=== PATIENT | male | born 1945 | race Caucasian/White ===

== ENCOUNTER 2023-08-17 07:50 | Outpatient (RCR) | payer OTHER, SELFPAY ==
[2023-07-25 13:56] LABS: Hematocrit 20.6 % (39.0-52.0); Hemoglobin 6.8 g/dL (13.0-18.0); Mean Corpuscular Volume 90.7 fL (80.0-94.0); Mean Platelet Volume 11.2 fL (7.4-10.4); Platelet Count 178 10^3/uL (130-400); Red Blood Cell Count 2.27 10^6/uL (4.70-6.10); Red Cell Dist. Width 16.2 % (11.5-14.5); White Blood Cell Count 172.7 10^3/uL (4.8-10.8)
[2023-07-25 17:13] LABS: Absolute Neutrophils -Man Diff 43.1 10^3/uL (1.4-6.5); Band Neutrophils 7 % (0-3); Lymphocytes 16 % (20-51); Segmented Neutrophils 18 % (42-75)
[2023-07-25 17:14] LABS: Eosinophils 1 % (0-6); Metamyelocytes 3 % (-); Monocytes 11 % (2-9); Myelocytes 4 % (-); Normal RBC Morphology No; Nucleated Red Blood Cells 1 (-); Platelets Checked Yes; Promyelocytes 5 % (-)
[2023-07-25 17:15] LABS: Anisocytosis 1+; Hypochromasia 2+; Microcytosis Slight
[2023-07-25 17:16] LABS: Total Cells Counted 100
[2023-07-25 17:21] LABS: Blasts 35 % (-)
[2023-07-28] VITALS (8 sets, daily range): BP systolic 92–97; BP diastolic 51–55
[2023-08-03 13:03] LABS: Hematocrit 19.2 % (39.0-52.0); Hemoglobin 6.7 g/dL (13.0-18.0); Mean Corp Hgb Conc. 34.9 g/dL (33.0-37.0); Mean Corpuscular Hgb 29.4 pg (27.0-31.0); Mean Corpuscular Volume 84.2 fL (80.0-94.0); Platelet Count 73 10^3/uL (130-400); Red Blood Cell Count 2.28 10^6/uL (4.70-6.10); Red Cell Dist. Width 15.8 % (11.5-14.5); White Blood Cell Count 13.1 10^3/uL (4.8-10.8)
[2023-08-03 14:32] LABS: Anisocytosis 1+; Band Neutrophils 5 % (0-3); Hypochromasia 2+; Lymphocytes 11 % (20-51); Metamyelocytes 2 % (-); Monocytes 1 % (2-9); Normal RBC Morphology No; Platelets Checked Yes; Segmented Neutrophils 64 % (42-75)
[2023-08-03 14:33] LABS: Blasts 17 % (-)
[2023-08-03 14:36] LABS: Total Cells Counted 100
[2023-08-04 08:34] VITALS: BP 82/47
[2023-08-04 08:51] VITALS: BP 81/40
[2023-08-04 10:53] VITALS: BP 92/53
[2023-08-04 11:01] VITALS: BP 92/53
[2023-08-04 11:19] VITALS: BP 92/49
[2023-08-04 13:40] VITALS: BP 95/53
[2023-08-15 14:04] LABS: Hemoglobin 7.2 g/dL (13.0-18.0); Mean Corp Hgb Conc. 32.7 g/dL (33.0-37.0); Mean Corpuscular Hgb 28.8 pg (27.0-31.0); Mean Platelet Volume 12.9 fL (7.4-10.4); Platelet Count 41 10^3/uL (130-400); Red Cell Dist. Width 15.1 % (11.5-14.5); White Blood Cell Count 5.7 10^3/uL (4.8-10.8)
[2023-08-15 14:35] LABS: Absolute Neutrophils -Man Diff 1.4 10^3/uL (1.4-6.5); Band Neutrophils 0 % (0-3); Blasts 7 % (-); Lymphocytes 53 % (20-51); Metamyelocytes 1 % (-); Monocytes 14 % (2-9); Segmented Neutrophils 25 % (42-75)
[2023-08-15 14:36] LABS: Normal RBC Morphology Yes; Platelets Checked Yes
[2023-08-15 14:37] LABS: Total Cells Counted 100
[2023-08-17 08:28] VITALS: BP 98/56
[2023-08-17 08:47] VITALS: BP 86/43
[2023-08-17 10:36] VITALS: BP 89/47
[2023-08-17 10:57] VITALS: BP 89/47
[2023-08-17 11:15] VITALS: BP 95/48
[2023-08-17 14:11] VITALS: BP 99/52
== END 2023-08-23 23:59 | disposition home or self-care (01) ==
LOC: OID 07:50
PROVIDERS: ATTENDING PHYSICIAN Nurse Practitioner Adult Health; FAMILY PHYSICIAN Family Medicine; REFERRING PHYSICIAN Internal Medicine Hematology & Oncology
DX: D46.9 Myelodysplastic syndrome, unspecified (principal); C92.00 Acute myeloblastic leukemia, not having achieved remission (principal); D69.6 Thrombocytopenia, unspecified; D46.A Refractory cytopenia with multilineage dysplasia; N18.2 Chronic kidney disease, stage 2 (mild); D63.1 Anemia in chronic kidney disease; M80.00XA Age-related osteoporosis with current pathological fracture, unspecified site, initial encounter for fracture
CPT/HCPCS: 36415; 36430; 85025; 86850; 86900; 86901; 86920; P9016

== ENCOUNTER → 2023-08-22 13:44 | Outpatient (REF) | payer OTHER, SELFPAY ==
[2023-08-22 14:42] LABS: Hematocrit 25.8 % (39.0-52.0); Hemoglobin 8.3 g/dL (13.0-18.0); Mean Corp Hgb Conc. 32.2 g/dL (33.0-37.0); Mean Corpuscular Hgb 29.2 pg (27.0-31.0); Mean Corpuscular Volume 90.8 fL (80.0-94.0); Mean Platelet Volume 12.1 fL (7.4-10.4); Platelet Count 95 10^3/uL (130-400); Red Blood Cell Count 2.84 10^6/uL (4.70-6.10); Red Cell Dist. Width 15.2 % (11.5-14.5); White Blood Cell Count 17.3 10^3/uL (4.8-10.8)
[2023-08-23 07:34] LABS: Absolute Neutrophils -Man Diff 6.4 10^3/uL (1.4-6.5); Anisocytosis 1+; Band Neutrophils 3 % (0-3); Blasts 14 % (-); Eosinophils 2 % (0-6); Lymphocytes 28 % (20-51); Metamyelocytes 3 % (-); Monocytes 14 % (2-9); Myelocytes 2 % (-); Normal RBC Morphology No; Platelets Checked Yes; Segmented Neutrophils 34 % (42-75)
[2023-08-23 07:35] LABS: Hypochromasia Slight; Total Cells Counted 100
== END ==
LOC: REG 13:44
PROVIDERS: ATTENDING PHYSICIAN Internal Medicine Hematology & Oncology
DX: D46.A Refractory cytopenia with multilineage dysplasia (principal); C92.00 Acute myeloblastic leukemia, not having achieved remission; M80.00XA Age-related osteoporosis with current pathological fracture, unspecified site, initial encounter for fracture
CPT/HCPCS: 36415; 85025; 86850; 86900; 86901

== ENCOUNTER 2023-08-31 09:22 | Outpatient (RCR) | payer OTHER, SELFPAY ==
[2023-08-29 14:29] LABS: Hematocrit 21.4 % (39.0-52.0); Hemoglobin 7.1 g/dL (13.0-18.0); Mean Corp Hgb Conc. 33.2 g/dL (33.0-37.0); Mean Corpuscular Hgb 29.5 pg (27.0-31.0); Mean Corpuscular Volume 88.8 fL (80.0-94.0); Mean Platelet Volume 12.1 fL (7.4-10.4); Platelet Count 198 10^3/uL (130-400); Red Blood Cell Count 2.41 10^6/uL (4.70-6.10); Red Cell Dist. Width 15.4 % (11.5-14.5)
[2023-08-29 14:45] LABS: Absolute Neutrophils -Man Diff 18.1 10^3/uL (1.4-6.5); Band Neutrophils 1 % (0-3); Eosinophils 4 % (0-6); Lymphocytes 7 % (20-51); Monocytes 29 % (2-9); Segmented Neutrophils 36 % (42-75)
[2023-08-29 14:46] LABS: Anisocytosis 1+; Blasts 22 % (-); Myelocytes 1 % (-); Normal RBC Morphology No; Platelets Checked Yes
[2023-08-29 14:47] LABS: Acanthocytes 1+; Hypochromasia 1+; Ovalocytes 1+; Polychromasia 1+; Total Cells Counted 100
[2023-08-31] VITALS (7 sets, daily range): BP systolic 81–111; BP diastolic 42–52
== END 2023-09-21 23:59 | disposition home or self-care (01) ==
LOC: OID 09:22
PROVIDERS: ATTENDING PHYSICIAN Nurse Practitioner Adult Health; FAMILY PHYSICIAN Family Medicine; REFERRING PHYSICIAN Internal Medicine Hematology & Oncology
DX: C92.00 Acute myeloblastic leukemia, not having achieved remission (principal); D46.A Refractory cytopenia with multilineage dysplasia; N18.2 Chronic kidney disease, stage 2 (mild); D63.1 Anemia in chronic kidney disease; M80.00XA Age-related osteoporosis with current pathological fracture, unspecified site, initial encounter for fracture
CPT/HCPCS: 36415; 36430; 85025; 86850; 86900; 86901; 86920; P9016

== ENCOUNTER 2023-09-19 16:54 | Inpatient (IN) | payer OTHER, SELFPAY ==
[2023-09-19] VITALS (15 sets, daily range): BP systolic 81–99; BP diastolic 49–61; BMI 19.4; BMI 19.2
--- NOTE | 2023-09-19 12:19 | ED.GENMED ---
History of Present Illness
<Romana Tucker PA-C - Last Filed: 09/19/23 18:16>
General
Chief Complaint: Breathing Problem
Source: patient
Exam Limitations: none
Time Seen by Provider: 09/19/23 12:17
Nursing documentation reviewed up to this point in time: agreed with
Travel History
Have you had any contact with someone who has COVID-19?: No
Do you have any symptoms of coronavirus? Fever > 100 degrees, chills, cough, shortness of breath, sore throat, loss of taste or smell, muscle aches, or headache?: No
History of Present Illness
History of Present Illness:
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 Patient reports that his palliative care physician visited him yesterday for routine exam,
and noted that he had a pulse ox of 88% on room air as well as crackles heard on exam. Patient himself denies no shortness of breath but does state that for the past 2 weeks or so, he has had lower extremity swelling, as well as swelling around his
abdomen. Patient denies any chest pain, back pain, fevers, chills, nausea, vomiting. Patient does note that he has had cough and cold-like symptoms for the past few days. He states that his doctor started him on Lasix yesterday and gave him 40 mg
yesterday by mouth. He received 20 mg this morning. His physician advised him to return to the emergency department due to his persistent low pulse ox and lower extremity swelling despite oral Lasix therapy. Patient does not have a known history
of heart failure and is never been on Lasix prior. Patient currently receiving Vidaza injections at a lower dose and normal for his palliative care treatment.
Past History
<Romana Tucker PA-C - Last Filed: 09/19/23 18:16>
Past History
ED Past Medical History: Cancer (MDS, Skin cancer, leukemia with a bone marrow transplant), GERD and Other (Myelodysplastic Syndrome, Iron deficient Anemia, Renal calculs, PNA)
ED Past Surgical History: Tonsilectomy (and adenoids), Urological (Vasectomy) and Other (Moh's , Detached retina)
Social History
Tobacco: Former smoker
Alcohol: None (Beer 1-2)
Drug: None
Personal:
Living: with family
Employment: Retired
Family History
Family History: Other (Noncontributory)
Review of Systems
<Romana Tucker PA-C - Last Filed: 09/19/23 18:16>
Review of Systems
All Other Systems: ROS reviewed and negative except as documented in HPI and ROS
Phy Exam
<Romana Tucker PA-C - Last Filed: 09/19/23 18:16>
Physical Exam
Physical Exam:
General: Patient is ill-appearing, cachectic body habitus
Skin: Warm and dry, no rashes or lesions
Head: Normal cephalic, atraumatic
Cardiac: Regular rate and rhythm, no murmurs
Respiratory: Increased respiratory rate, crackles heard bilaterally in lower lung bases.
Peripheral vascular: There is pitting edema in the lower extremities bilaterally. No tenderness to palpation.
Abdomen: There are 2 soft, pitting palpable masses on either side of patient's abdomen. There is no tenderness palpation.
Neuro: AAOx3. Cranial nerves II through XII intact.
Scores
<Romana Tucker PA-C - Last Filed: 09/19/23 18:16>
Heart Failure Risk
Heart Failure Risk Score: Yes
History of Stroke or TIA: No
History of intubation for respiratory distress: No (unknown)
Heart rate on ED arrival >/= 110: No
SaO2 <90% on arrival on room air: No
HR >/=110 during 3min walk test (or too ill to perform test): No
ECG has acute ischemic changes: No
Urea >/=12mmol/L (BUN 33.6mg/dL): Yes
Serum CO2>/=35mmol/L: No
Troponin I or T elevated to ND Level (0.4mg/dL): No
NT-proBNP >/=5,000ng/L (5,000pg/ml): No
HF Risk Score: 1
Admission Status: MEDIUM RISK 5.1% Consider observation or discharge to home with homecare & f/u visit to PCP/[facility], or SNF for treatment
Course
<Romana Tucker PA-C - Last Filed: 09/19/23 18:16>
Orders/Labs/Results
Orders:
Orders
09/19/23 12:30
Cardiac Monitoring- Treatment ONCE
09/19/23 12:31
Electrocardiogram (*1) Urgent
Reason for Study: Shortness of Breath
EKG- Treatment ONCE
CR Chest - 2 Views Urgent
Comment:
Reason For Exam: shortness of breath
09/19/23 12:53
Complete Blood Count/With Diff Urgent
Comprehensive Metabolic Panel Urgent
Manual Differential Urgent
NT-proBNP Urgent
Troponin I Urgent
09/19/23 13:34
Furosemide [Lasix] 40 mg IV NOW STA
09/19/23 16:07
Admit/Transfer Patient As Directed
Co-Sign Provider:
Level of Care: Inpatient admission
Assign to:: Telemetry
Physician / Group: Jared
Diagnosis: Heart Failure
Reason for Telemetry: Acute Heart Failure
Date to Stop Telemetry: 09/22/23
Time to Stop Telemetry: 11:00
Reason for Hospitalization: blood transfusion; diuretics
Expected length of stay greater than two midnights?: Yes
ELOS- Estimated Length of Stay in days: 3
I certify the patient meets the requirements for IP care: Yes
09/19/23 16:30
Code Status As Directed
Resuscitation Status: Do not resuscitate
Reached after discussion with pt or family/Healthcare POA: Yes
DNR Bracelet Application ONCE
09/19/23 16:34
Blood Bank Products [* Blood Bank Products] Urgent
Blood Bank Products: *Packed RBC Leuko(PRBC's)
Quantity: 1
Transfuse Today: Yes
Reason: Anemia
09/19/23 17:02
Type And Crossmatch Stat
09/22/23 11:00
DC Protocol for Telemetry ONCE
Abnormal Lab Results
09/19/23
12:53
WBC 54.9 H* 10^3/uL
(4.8-10.8)
RBC 2.37 L 10^6/uL
(4.70-6.10)
Hgb 7.0 L g/dL
(13.0-18.0)
Hct 21.0 L %
(39.0-52.0)
RDW 15.9 H %
(11.5-14.5)
Plt Count 59 L 10^3/uL
(130-400)
MPV 13.0 H fL
(7.4-10.4)
Abs Neuts (Manual) 17.0 H 10^3/uL
(1.4-6.5)
Segmented Neutrophils 30 L %
(42-75)
Monocytes (Manual) 15 H %
(2-9)
Blast Cells 14 H* %
(-)
BUN 38 H mg/dl
(9-20)
Glucose 103 H mg/dl
(70-99)
Calcium 7.9 L mg/dl
(8.4-10.2)
Total Protein 5.1 L g/dl
(6.3-8.2)
Albumin 3.3 L g/dl
(3.5-5.0)
09/19/23 12:53
09/19/23 12:53
Vital Signs
Initial and Last Documented VS:
Initial Vital Signs
Temp Pulse Resp BP Pulse Ox
98.7 F 86 20 94/52 94
09/19/23 11:42 09/19/23 11:42 09/19/23 11:42 09/19/23 11:42 09/19/23 11:42
Last Documented Vital Signs
Temp Pulse Resp BP Pulse Ox
98.7 F 83 21 95/55 96
09/19/23 11:42 09/19/23 17:00 09/19/23 17:00 09/19/23 17:00 09/19/23 17:00
<Trev Rick, DO - Last Filed: 09/19/23 13:04>
Orders/Labs/Results
Orders:
Orders
09/19/23 12:30
Cardiac Monitoring- Treatment ONCE
09/19/23 12:31
Electrocardiogram (*1) Urgent
Reason for Study: Shortness of Breath
EKG- Treatment ONCE
CR Chest - 2 Views Urgent
Comment:
Reason For Exam: shortness of breath
09/19/23 12:53
Complete Blood Count/With Diff Urgent
Comprehensive Metabolic Panel Urgent
Manual Differential Urgent
NT-proBNP Urgent
Troponin I Urgent
09/19/23 13:34
Furosemide [Lasix] 40 mg IV NOW STA
09/19/23 16:07
Admit/Transfer Patient As Directed
Co-Sign Provider:
Level of Care: Inpatient admission
Assign to:: Telemetry
Physician / Group: Jared
Diagnosis: Heart Failure
Reason for Telemetry: Acute Heart Failure
Date to Stop Telemetry: 09/22/23
Time to Stop Telemetry: 11:00
Reason for Hospitalization: blood transfusion; diuretics
Expected length of stay greater than two midnights?: Yes
ELOS- Estimated Length of Stay in days: 3
I certify the patient meets the requirements for IP care: Yes
09/19/23 16:30
Code Status As Directed
Resuscitation Status: Do not resuscitate
Reached after discussion with pt or family/Healthcare POA: Yes
DNR Bracelet Application ONCE
09/19/23 16:34
Blood Bank Products [* Blood Bank Products] Urgent
Blood Bank Products: *Packed RBC Leuko(PRBC's)
Quantity: 1
Transfuse Today: Yes
Reason: Anemia
09/19/23 17:02
Type And Crossmatch Stat
09/22/23 11:00
DC Protocol for Telemetry ONCE
Abnormal Lab Results
09/19/23
12:53
WBC 54.9 H* 10^3/uL
(4.8-10.8)
RBC 2.37 L 10^6/uL
(4.70-6.10)
Hgb 7.0 L g/dL
(13.0-18.0)
Hct 21.0 L %
(39.0-52.0)
RDW 15.9 H %
(11.5-14.5)
Plt Count 59 L 10^3/uL
(130-400)
MPV 13.0 H fL
(7.4-10.4)
Abs Neuts (Manual) 17.0 H 10^3/uL
(1.4-6.5)
Segmented Neutrophils 30 L %
(42-75)
Monocytes (Manual) 15 H %
(2-9)
Blast Cells 14 H* %
(-)
BUN 38 H mg/dl
(9-20)
Glucose 103 H mg/dl
(70-99)
Calcium 7.9 L mg/dl
(8.4-10.2)
Total Protein 5.1 L g/dl
(6.3-8.2)
Albumin 3.3 L g/dl
(3.5-5.0)
09/19/23 12:53
09/19/23 12:53
Vital Signs
Initial and Last Documented VS:
Initial Vital Signs
Temp Pulse Resp BP Pulse Ox
98.7 F 86 20 94/52 94
09/19/23 11:42 09/19/23 11:42 09/19/23 11:42 09/19/23 11:42 09/19/23 11:42
Last Documented Vital Signs
Temp Pulse Resp BP Pulse Ox
98.7 F 83 21 95/55 96
09/19/23 11:42 09/19/23 17:00 09/19/23 17:00 09/19/23 17:00 09/19/23 17:00
<Romana Tucker PA-C - Last Filed: 09/19/23 18:16>
MDM/Problems Addressed
Differential Diagnosis Includes:
Differentials include CHF, pneumonia, atrial fibrillation, upper respiratory infection, metabolic acidosis, hepatorenal syndrome
MDM/Problems Addressed:
Hypoxia, edema
Chronic conditions affecting care: HTN and Cancer
Acute Exacerbation and/or Progression of Chronic Illness: Cancer
<Romana Tucker PA-C - Last Filed: 09/19/23 18:16>
*Pulse Oximetry
Patient hypoxic: no
*Critical Care Note
Total Time (30-74mins, 75-104mins- exclusive of procedures): Not Applicable
Data Reviewed
Review of Other/Old Records Reveals: Records (Reviewed ER physician documentation from 04/17/2023) and Discharge Summary (Reviewed discharge summary from 07/31/23)
Source: patient, records and family
<Romana Tucker PA-C - Last Filed: 09/19/23 18:16>
Patient Management
Escalation/DeEscalation of care consider admission/obs:
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 Patient reports that his palliative care physician visited him yesterday for routine exam,
and noted that he had a pulse ox of 88% on room air as well as crackles heard on exam. Patient himself denies no shortness of breath but does state that for the past 2 weeks or so, he has had lower extremity swelling, as well as swelling around his
abdomen. On exam, he is anasarca present. His chest x-ray shows bilateral pleural effusions but no evidence of pneumonia. Suspect his current symptoms are secondary to acute heart failure. No signs of ischemia on EKG, troponin negative.
Considering patient is failing outpatient p.o. with therapy, will admit for IV therapy and O2 monitoring.
ED Attending Note
<Romana Tucker PA-C - Last Filed: 09/19/23 18:16>
-
Portions of this chart may have been created with voice recognition software.� Occasional wrong word or��sound alike� substitutions may have occurred due to the inherent limitations of voice recognition software.
<Trev Rick DO - Last Filed: 09/19/23 13:04>
ED Attending Note
Patient seen and examined by attending physician: Yes
I performed the substantive portion of visit, reviewed & personally made and approve the management plan that is documented in note by myself or JANUARY.: Yes
ED Attending Note:
I have seen and evaluated the patient with a [id number] encounter. I have spoken to the advance practicer provider and involved in the medical history, the physical exam, medical decision making.
Evaluation and management service: agree unless noted differently below.
Results interpretation: agree unless noted differently below.
Focused HPI: 77-year-old male presenting with worsening shortness of breath. Patient has a history of AML and is currently on palliative care. His physician evaluated him today and noted that he had crackles in his lungs and his oxygen was lower
than normal. Patient was recently started on Lasix for this issue. at bedside states that he had trouble sleeping 2 nights ago due to his shortness of breath. He slept better last night has persistent leg swelling
Physical exam: Sitting in bed comfortably. Crackles noted to left lung base. Pitting edema to bilateral lower extremities. Mild pitting edema to abdomen
Medical Decision Making: Will obtain basic blood work. Chest x-ray shows left pleural effusion. Given worsening symptoms despite p.o. Lasix, will likely admit for IV Lasix and further treatment
Discharge Plan
Departure
Patient Disposition: Admit
Date of Disposition: 09/19/23
Time of Disposition: 13:44
Presentation/result/management discussed w/ accepting MD/DO: Hospitalist
Condition: Fair
Discharge Problem:
Shortness of breath, Pleural effusion
Interventions
Interventions:
*Risk Screen - Suicide Last Done: 09/19/23 13:00
*General Assessment Last Done: 09/19/23 13:00
*Neglect/Abuse Screening Last Done: 09/19/23 13:00
ED- Cardiac Assessment Last Done: 09/19/23 13:07
ED- Pulmonary Assessment Last Done: 09/19/23 13:07
[2023-09-19 13:07] LABS: Mean Corp Hgb Conc. 33.3 g/dL (33.0-37.0); Mean Corpuscular Hgb 29.5 pg (27.0-31.0); Mean Corpuscular Volume 88.6 fL (80.0-94.0); Red Blood Cell Count 2.37 10^6/uL (4.70-6.10); Red Cell Dist. Width 15.9 % (11.5-14.5)
[2023-09-19 13:19] LABS: ALT (SGPT) 30 U/L (0-50); AST (SGOT) 20 U/L (17-59); Albumin 3.3 g/dl (3.5-5.0); Alkaline Phosphatase 56 U/L (38-126); Blood Urea Nitrogen 38 mg/dl (9-20); Calcium 7.9 mg/dl (8.4-10.2); Carbon Dioxide 30 mmol/L (22-30); Chloride 101 mmol/L (98-107); Estimated Creatinine Clearance 60 ml/min; Glucose 103 mg/dl (70-99); Sodium 135 mmol/L (135-145); Total Bilirubin 0.7 mg/dl (0.2-1.3); Total Protein 5.1 g/dl (6.3-8.2); eGFR > 60.00
[2023-09-19 13:22] LABS: Potassium 4.1 mmol/L (3.5-5.1)
[2023-09-19 13:23] LABS: White Blood Cell Count 54.9 10^3/uL (4.8-10.8)
[2023-09-19 13:30] LABS: NT-proBNP 1420 pg/ml; Troponin I < 0.012 ng/ml
[2023-09-19 13:45] LABS: Platelet Count 59 10^3/uL (130-400); Segmented Neutrophils 30 % (42-75)
[2023-09-19 13:46] LABS: Band Neutrophils 1 % (0-3); Eosinophils 1 % (0-6); Lymphocytes 38 % (20-51); Metamyelocytes 1 % (-); Monocytes 15 % (2-9); Normal RBC Morphology No; Ovalocytes 1+; Platelets Checked Yes; Poikilocytosis 1+; Polychromasia Slight
[2023-09-19 13:47] LABS: Total Cells Counted 100
[2023-09-19 13:51] LABS: Blasts 14 % (-)
--- NOTE | 2023-09-19 16:39 | HPS.HSE ---
Addendum entered and electronically signed by Eduin Coleman MD 09/19/23 17:41:
Pt very weak, appears severely malnourished
Seen independently and agree with PA note
Heent - temporal muscle wasting
Chest severe supraclavicular muscle atrophy
Lungs bibasilar rales
CV reg accentuated PMI
Abd scaphoid
Ext 4+ pretibial edema
Imp: Acute hypoxic respiratory distress due to high output heart failure (profound anemia)
Profound anemia
Acute Myeloblastic leukemia
Hx of PAF
P:transfuse 1 unit PRBC tonight
recheck Hgb in AM for potential 2nd unit
clarified code status, he is a DNR
Consult Onc
Original Note:
Family Physician
-
Family Physician: * NONE
Chief Complaint
-
Low Pulse Ox
History of Present Illness
Patient is a 77M with PMH of AML, paroxysmal atrial fibrillation who presents with hypoxia. He was seen yesterday by Dr. Solis (palliative care) who noted oxygen saturation to be mid 80%. She also started him on Lasix. Patient noted oxygen
saturation on home pulse oximeter to be 77% and 86% a few hours later, after which he presented to the ED. Patient denies SOB and orthopnea however at bedside notes that he is short of breath, especially when up and walking around. He admits to
non-productive cough x 3-4 days. He says he has had edema in his legs and abdomen 'forever' however it has worsened over the past 1-2 weeks. He has been getting Vidaza injections for the past 4 weeks, last dose was Monday. He denies any prior
history of heart failure.
Medical History
Past Medical History
Past Medical History: Reports Other
Additional Past Medical History:
Paroxysmal Atrial Fibrillation
Acute Myeloid Leukemia
Past Surgical History: Reports Other
Additional Past Surgical History:
Moh's
Detached Retina
Vasectomy
Tonsillectomy
Social History
Tobacco: Non-smoker
Alcohol: None
Drug: None
Personal:
Living: With Family
Family History
Family History: Not pertinent
Allergies / Home Medications
Allergies reflects when Allergies were last updated in [facility].
Home Medications with original date entered in [facility]
Allergy/Medication List:
Allergies
Allergy/AdvReac Type Severity Reaction Status Date / Time
No Known Allergies Allergy Verified 08/31/23 10:08
Home Medications
gabapentin 300 mg capsule 300 mg PO DAILY pain 03/23/23
gabapentin 300 mg capsule 600 mg PO HS pain 03/23/23
cephalexin 500 mg capsule 500 mg PO TID prophylaxis 04/24/23
polyethylene glycol 3350 17 gram oral powder packet (Miralax) 17 g PO DAILYPRN PRN constipation 05/31/23
furosemide 20 mg tablet (Lasix) 20 mg PO DAILY Fluid Retention/Swelling 09/19/23
Review of Systems
-
A 12 point ROS was completed and negative except as noted: Yes
Constitutional: Denies Fever or Chills
Respiratory: Denies Cough or Trouble Breathing
Cardiac: Reports Chest Pain; Denies Palpitations
Physical Exam
Vital Signs
Vital Signs
Temp Pulse Resp BP Pulse Ox
98.7 F 78 19 84/46 93
09/19/23 11:42 09/19/23 13:00 09/19/23 13:00 09/19/23 14:30 09/19/23 13:00
Physical Exam
General: Comfortable and Conversant
HEENT: Moist mucous membranes and Oxygen (Nasal Cannula)
Respiratory: Rales and Non Labored Respirations
Cardiac: S1/S2, Regular Rhythm and JVD; No Murmur
GI: Soft and Non Tender
Rectal: Deferred by Provider
Musculoskeletal: No Clubbing, No Cyanosis and Other (+4 pitting edema bilateral lower )
Skin: Warm and Dry
Neuro: Awake, Alert, Oriented and Nonfocal/grossly intact
Laboratory Results
-
09/19/23:
09/19/23 12:
Laboratory Results
Total Bilirubin 0.7 mg/dl (0.2-1.3) 09/19/23 12:
AST 20 U/L (17-59) 09/19/23 12:53
ALT 30 U/L (0-50) 09/19/23 12:53
Alkaline Phosphatase 56 U/L (38-126) 09/19/23 12:
Troponin I < 0.012 ng/ml 09/19/23 12:53
Data Reviewed
-
Diagnostic Radiology: Image Personally Visualized and interpreted and Report Reviewed by me
Lab Data: Labs Reviewed by me
Old Records: Reviewed
Impression/Plan
-
Acute Hypoxic Respiratory Insufficiency secondary to Severe Anemia
-Transfuse 1 units PRBCs
-Give 40mg IV post transfusion if BP tolerates
Acute Myeloid Leukemia
-Patient receiving Vidaza weekly - Last dose Sep 15
-Continue cephalexin prophylaxis
-Consult Oncology
Severe Protein Calorie Malnutrition
-Consult Dietary
DVT proph: Anticoagulant contraindicated due to thrombocytopenia. SCDs contraindicated due to signficant lower extremity edema
Code Status: DNR
--- NOTE | 2023-09-19 18:54 | PTCARENOTE ---
pt arrived onto 2N on stretcher on 2L of O2 and tele, pt is able to walk from stretcher to bed and standing scale. Pt uses a RW to get around at home and around in room prn. call paez is in reach will continue to monitor.
[2023-09-19] MEDS: TYLENOL 650 MG PO (20:27)
[2023-09-19] MEDS: NEURONTIN 600 MG PO (21:54)
[2023-09-19] MEDS: KEFLEX 500 MG PO (21:54)
[2023-09-20] VITALS (10 sets, daily range): BP systolic 91–116; BP diastolic 54–65; BMI 19.3
--- NOTE | 2023-09-20 03:04 | PTCARENOTE ---
0225 dressing where cahnged mid back large, left and right upper mid glutes. pt is now resting, call paez in reach, will continue to monitor.
[2023-09-20 05:02] LABS: Mean Corp Hgb Conc. 33.5 g/dL (33.0-37.0); Mean Corpuscular Hgb 29.7 pg (27.0-31.0); Mean Corpuscular Volume 88.8 fL (80.0-94.0); Mean Platelet Volume 12.2 fL (7.4-10.4); Platelet Count 42 10^3/uL (130-400); Red Blood Cell Count 2.32 10^6/uL (4.70-6.10); Red Cell Dist. Width 15.2 % (11.5-14.5)
[2023-09-20 05:05] LABS: Hemoglobin 6.9 g/dL (13.0-18.0); White Blood Cell Count 46.9 10^3/uL (4.8-10.8)
[2023-09-20 05:06] LABS: Hematocrit 20.6 % (39.0-52.0)
--- NOTE | 2023-09-20 05:27 | PTCARENOTE ---
Checked on Pt with pain on his back, added another pad on the mid pack just for comfort. RN notified, call paez in reach, will continue to monitor.
[2023-09-20] MEDS: TYLENOL 650 MG PO ×2 (05:31→21:05)
[2023-09-20 05:32] LABS: Blood Urea Nitrogen 43 mg/dl (9-20); Calcium 8.1 mg/dl (8.4-10.2); Carbon Dioxide 32 mmol/L (22-30); Chloride 101 mmol/L (98-107); Estimated Creatinine Clearance 75 ml/min; Glucose 87 mg/dl (70-99); Potassium 4.1 mmol/L (3.5-5.1); Sodium 137 mmol/L (135-145); eGFR > 60.00
--- NOTE | 2023-09-20 05:51 | W.PN.UPDATE ---
Update Note
Progress Note Update
Hgb 6.9, will order 1 unit now, IV Lasix ordered for post blood transfusion, stable VS at present.
--- NOTE | 2023-09-20 06:48 | CON.ONC ---
Impression
Impression
AML
Acute hypoxic respiratory distress due to high output heart failure (profound anemia)
Hx of PAF
Plan
Plan
Supportive care. Agree with PRBC x 2 (1 already given, another unit ordered).
Monitor O2 sats. Improved on O2 - 2L/min.
Home O2 eval.
Patient History
History of Present Illness
CC: Low Pulse Ox
Oncology Consult: AML
HPI: 77M with PMH of AML, paroxysmal atrial fibrillation who presents with hypoxia. He was seen yesterday by Dr. Solis (palliative care) who noted oxygen saturation to be mid 80%. She also started him on Lasix. Patient noted oxygen saturation on
home pulse oximeter to be 77% and 86% a few hours later, after which he presented to the ED. Patient denies SOB or fevers. He was recently restarted on Vidaza but is only getting a 50% dose (37.5 mg/m2 D1-5 Q 4 weeks) because of poor PS, last Tx
09/11-09/15. Patient does not want hospice care at this time although he is DNR. He was transfused overnight x 1 unit for HgB = 7.0. It is 6.9 this am and another unit has been ordered bu the nocturnal house .
Past-Medical/Surgical History
PMH:
Paroxysmal Atrial Fibrillation
Acute Myeloid Leukemia
PSH:
Moh's
Detached Retina
Vasectomy
Tonsillectomy
Social History
Tobacco: Non-smoker
Alcohol: None
Drug: None
Personal:
Living: With Family
Family History: Not pertinent
Patient Medication
Medication Instructions Recorded Confirmed Last Taken Type
gabapentin 300 mg capsule 300 mg PO DAILY pain 03/23/23 09/19/23 09/19/23 History
gabapentin 300 mg capsule 600 mg PO HS pain 03/23/23 09/19/23 09/18/23 History
cephalexin 500 mg capsule 500 mg PO TID prophylaxis 04/24/23 09/19/23 09/19/23 History
polyethylene glycol 3350 17 gram 17 g PO DAILYPRN PRN constipation 05/31/23 09/19/23 09/19/23 History
oral powder packet (Miralax)
furosemide 20 mg tablet (Lasix) 20 mg PO DAILY Fluid 09/19/23 09/19/23 09/19/23 History
Retention/Swelling
Active Medications
Generic Name Dose Route Start Last Admin
Trade Name Freq PRN Reason Stop Dose Admin
Acetaminophen 650 mg 09/19/23 18:38 09/20/23 05:31
Acetaminophen 325 Mg Tablet PO 10/17/23 18:37 650 mg
Q4HPRN PRN Administration
mild pain/ fever>100.5F
Cephalexin HCl 500 mg 09/19/23 22:00 09/19/23 21:54
Cephalexin 500 Mg Capsule PO 500 mg
TID YOLANDA Administration
Gabapentin 300 mg 09/20/23 08:00
Gabapentin 300 Mg Capsule PO 10/18/23 07:59
DAILY YOLANDA
Gabapentin 600 mg 09/19/23 22:00 09/19/23 21:54
Gabapentin 300 Mg Capsule PO 10/17/23 21:59 600 mg
HS YOLANDA Administration
Sodium Chloride 0 flush 09/19/23 19:00
Sodium Chloride 0.9% (Flush) Syringe IV 10/17/23 18:59
PER PROTOCOL YOLANDA
Physical Exam
-
General: Comfortable, Conversant, Appears Chronically Ill and Cachetic
HEENT: Negative Jaundice
Cardiology: S1 and S2
Pulmonary: Clear
GI: Soft and Normal Bowel Sounds
Extremities: Edema (3+)
Neurology: Non Focal
Labs
Lab Results
WBC 46.9 10^3/uL (4.8-10.8) H* 09/20/23 04:13
RBC 2.32 10^6/uL (4.70-6.10) L 09/20/23 04:13
Hgb 6.9 g/dL (13.0-18.0) L* 09/20/23 04:13
Hct 20.6 % (39.0-52.0) L* 09/20/23 04:13
MCV 88.8 fL (80.0-94.0) 09/20/23 04:13
MCH 29.7 pg (27.0-31.0) 09/20/23 04:13
MCHC 33.5 g/dL (33.0-37.0) 09/20/23 04:13
RDW 15.2 % (11.5-14.5) H 09/20/23 04:13
Plt Count 42 10^3/uL (130-400) L D 09/20/23 04:13
MPV 12.2 fL (7.4-10.4) H 09/20/23 04:13
Abs Immat Gran (auto) Not Reportable 09/19/23 12:53
Absolute Neuts (auto) Not Reportable 09/19/23 12:53
Absolute Lymphs (auto) Not Reportable 09/19/23 12:53
Absolute Monos (auto) Not Reportable 09/19/23 12:53
Absolute Eos (auto) Not Reportable 09/19/23 12:53
Absolute Basos (auto) Not Reportable 09/19/23 12:53
Immature Gran % Not Reportable 09/19/23 12:53
Neutrophils % Not Reportable 09/19/23 12:53
Lymphocytes % Not Reportable 09/19/23 12:53
Monocytes % Not Reportable 09/19/23 12:53
Eosinophils % Not Reportable 09/19/23 12:53
Basophils % Not Reportable 09/19/23 12:53
Creatinine 0.7 mg/dL (0.7-1.3) 09/20/23 04:13
Laboratory Tests
08/29/23 09/19/23
14:11 12:53
Blast Cells 22 H* 14 H*
Vital Signs
Vital Signs
Temp Pulse Resp BP Pulse Ox
98.2 F 77 14 108/56 94
09/20/23 03:00 09/20/23 03:00 09/20/23 03:00 09/20/23 03:00 09/20/23 03:00
[2023-09-20] MEDS: KEFLEX 500 MG PO ×3 (07:35→21:02)
[2023-09-20] MEDS: NEURONTIN 300 MG PO (07:35)
--- NOTE | 2023-09-20 09:56 | WOUNDNOTE ---
WO RN note: Patient admitted with anemia/HF and AML
See H&P for complete history.
Wound Location and type/assessment: Patient admitted with: Healing stage 2 PI of spine and sacral area. Patient and report current wound care with [facility], and plan is for [facility] to discharge as wounds are 90% closed and progressing toward
healing. Some non-blanchable skin noted around coccyx. Heels with stage 1 PI (boggy, non-blanchable red). Patient has air cushion at home. states good knowledge of PI prevention. Patient states he uses a protein supplement at home. Reports and
demonstrates poor mobility and appetite. Dietary consulted.
Pressure redistribution devices in place: Current of Accumax, Air mattress ordered during assessment by this RN.
Plan: Local wound care to sacral coccyx with 5 layer silicone border foam. Spine foams maintained. Sure prep and adhesive foam to heels, with heels off-loaded with air cushion. Patient positioned for comfort. Hospital bed with air overlay
recommended at home, but patient declined. He prefers to sit in recliner with air cushion. Will confirm orders with hospitalist and update nurse. Updated care plan and will follow as needed.
Note to case management of equipment requested for discharge: Patient would likely benefit from hospital bed, but at time of assessment he did not want.
[2023-09-20] MEDS: ULTRAM 50 MG PO ×2 (11:07→18:39)
[2023-09-20] MEDS: LASIX 40 MG IV (11:41)
--- NOTE | 2023-09-20 13:29 | WOUNDNOTE ---
RIGHT LOW BACK
--- NOTE | 2023-09-20 14:43 | W.PN.HOSP.TC ---
Today's Communication/Plan
-
follow 3pm CBC and re-assess for transfusion needs
PT/OT evals
Assessment / Plan
Assessment / Plan
Assessment:
Acute high output CHF from acute anemia
Acute Hypoxic Respiratory Insufficiency secondary to above
- wean O2, home O2 eval in AM
- s/p IV Lasix post transfusion; monitor for further needs
Acute Myeloid Leukemia with bicytopenia (anemia, thrombocytopenia)
- s/p 2 units PRBC; await repeat Hb 3pm labs and re-assess
- Patient receiving Vidaza weekly - Last dose Sep 15
- Continue cephalexin prophylaxis
- Oncology following
Severe Protein Calorie Malnutrition
- Consult Dietary
hx of PAF
- Anticoagulant contraindicated due to thrombocytopenia
- not on rate control meds
DVT proph: Anticoagulant contraindicated due to thrombocytopenia. SCDs ordered.
Code Status: DNR
Anticipated Discharge: Within 24 hours
Subjective/Interval History
-
Date of Service: September 20, 2023
reports some back pain related to positioning by staff, improving with Tramadol
denies any new complaints, tolerated PRBC today
Objective Data
-
Labs:
Laboratory Results
09/20/23 09/20/23
04:13 15:00
WBC 46.9 H* Pending
Hgb 6.9 L* Pending
Hct 20.6 L* Pending
Plt Count 42 L D Pending
Sodium 137
Potassium 4.1
Chloride 101
Carbon Dioxide 32 H
BUN 43 H
Creatinine 0.7
Glucose 87
Calcium 8.1 L
Vital Signs:
Vital Signs
Temp Pulse Resp BP Pulse Ox
97.9 F 77 18 107/63 93
09/20/23 11:20 09/20/23 11:41 09/20/23 11:20 09/20/23 11:41 09/20/23 12:10
I&O
09/19/23 09/20/23 09/21/23
06:59 06:59 06:59
Intake Total 250 / 250 250 / 250
Balance 250 / 250 250 / 250
Physical Exam
-
General: No Apparent Distress and Appears Chronically Ill
HEENT: Normocephalic and Atraumatic
Respiratory: Negative Wheezes
Cardiac: Regular Rhythm
GI: Soft and Nontender
Musculoskeletal: Edema, Right Lower Extrem and Edema, Left Lower Extrem
Neuro: AO x 3
Hematologic / Lymphatic: No Lymphadenopathy
Psych: Calm
Data Reviewed
-
Total Time Spent with Patient (in minutes): 42
Labs: Labs Reviewed by me
[2023-09-20 15:40] LABS: Hematocrit 24.8 % (39.0-52.0); Hemoglobin 8.5 g/dL (13.0-18.0); Mean Corp Hgb Conc. 34.3 g/dL (33.0-37.0); Mean Corpuscular Hgb 30.2 pg (27.0-31.0); Mean Corpuscular Volume 88.3 fL (80.0-94.0); Mean Platelet Volume 12.4 fL (7.4-10.4); Platelet Count 44 10^3/uL (130-400); Red Blood Cell Count 2.81 10^6/uL (4.70-6.10); Red Cell Dist. Width 14.8 % (11.5-14.5)
[2023-09-20 16:01] LABS: White Blood Cell Count 50.9 10^3/uL (4.8-10.8)
--- NOTE | 2023-09-20 16:14 | CM ---
Initial assessment completed with patient and who live in a 2 story home with 1 step to enter. Home is 1st floor livable with B/B. MULTIMEDIA ASSISTANT, patient was able to ambulate within the home, to bathroom and to the car. His difficulties with mobility
are due to fatigue. He has a RW and tub bench. , son and daughter are support system. [facility] has been following patient for services. Will send updated referral for resumption and continuation of services. No psychiatric history. is HC
POA. Pharmacy is [facility] in [place] and PCP is Dr. Eduin Beach. Patient wants to continue with [facility] and will not go to a SNF. Will follow medical progression.
[2023-09-20] MEDS: NEURONTIN 600 MG PO (21:02)
[2023-09-21] VITALS (15 sets, daily range): BP systolic 80–131; BP diastolic 42–80; PULSE 105; BMI 18.8
[2023-09-21 06:14] LABS: Hematocrit 22.5 % (39.0-52.0); Hemoglobin 7.5 g/dL (13.0-18.0); Mean Corp Hgb Conc. 33.3 g/dL (33.0-37.0); Mean Corpuscular Hgb 29.6 pg (27.0-31.0); Mean Corpuscular Volume 88.9 fL (80.0-94.0); Mean Platelet Volume 12.7 fL (7.4-10.4); Nucleated Red Blood Cells % 0.3 % (-); Platelet Count 44 10^3/uL (130-400); Red Blood Cell Count 2.53 10^6/uL (4.70-6.10); Red Cell Dist. Width 15.2 % (11.5-14.5)
[2023-09-21 07:34] LABS: Absolute Neutrophils -Man Diff 17.4 10^3/uL (1.4-6.5); Band Neutrophils 0 % (0-3); Eosinophils 5 % (0-6); Lymphocytes 31 % (20-51); Monocytes 5 % (2-9); Segmented Neutrophils 33 % (42-75)
[2023-09-21 07:35] LABS: Anisocytosis 1+; Atypical Lymphocytes 15 %; Macrocytosis 1+; Normal RBC Morphology No; Platelets Checked Yes
[2023-09-21 07:36] LABS: Poikilocytosis 1+; Total Cells Counted 100
[2023-09-21 07:38] LABS: Blasts 11 % (-)
--- NOTE | 2023-09-21 08:20 | W.PN.ONC ---
Addendum entered and electronically signed by Roberto Chirinos DO 09/21/23 13:33:
Patient and chart evaluated agree with the impression and plan as outlined below by OMID. Agree with the impression and plan as outlined. Continue supportive care.
Original Note:
Today's Communication / Plan
-
Hgb 7.5, Hct 22.5, PLT 44
s/p 2units PRBCs, Lasix
Transfuse as needed to maintain Hgb >7, PLT >10
Bleeding precautions
CBC w/ diff daily, monitor H/H
Last Vidaza administered: 09/15
Holding Eliquis due to acute thrombocytopenia
Continue supportive care
Home O2 eval, monitor pox
PT/OT
Follow up with Dr. Rivera is scheduled 09/28 @ 0945 in [place]
Impression
Impression
AML, symptomatic anemia
Acute hypoxic respiratory distress
Hx of PAF
Subjective/Objective
Subjective/Objective
patient states he feels 'fine' with the exception of back pain. resting in bed. denies evidence of bleeding.
Vital Signs:
Vital Signs
Temp Pulse Resp BP Pulse Ox
97.6 F 72 16 92/55 100
09/21/23 03:34 09/21/23 03:34 09/21/23 03:34 09/21/23 03:34 09/21/23 03:34
physical exam
aaox3, cachectic, appears chronically ill
HRR,lungs dim, 2L oxygen via NC
+LE edema bilaterally
Lab Results:
Laboratory Data
WBC 53.0 10^3/uL (4.8-10.8) H* 09/21/23 05:18
Hgb 7.5 g/dL (13.0-18.0) L 09/21/23 05:18
Plt Count 44 10^3/uL (130-400) L 09/21/23 05:18
eGFR > 60.00 09/20/23 04:13
[2023-09-21] MEDS: NEURONTIN 300 MG PO (09:23)
[2023-09-21] MEDS: KEFLEX 500 MG PO (09:23)
[2023-09-21] MEDS: ULTRAM 50 MG PO ×2 (09:34→20:13)
--- NOTE | 2023-09-21 11:50 | W.PN.HOSP.TC ---
Today's Communication/Plan
-
sequence of todays care. PT/OT first. Then transfuse 1 unit of PRBC with IV Lasix.
Assessment / Plan
Assessment / Plan
Assessment:
Acute high output CHF from acute anemia, on chronic HFrEF
Acute Hypoxic Respiratory Insufficiency secondary to above
- Echo in 09/15: EF was 44%
- wean O2, home O2 eval closer to DC
- s/p IV Lasix post transfusion; monitor for further needs - requires intensive monitoring
- at discharge Lasix 20mg as recently prescribed
Acute Myeloid Leukemia with bicytopenia (anemia, thrombocytopenia)
- s/p 2 units PRBC; repeat Hb now 7.5 - 1 unit further planned
- Patient receiving Vidaza weekly - Last dose Sep 15
- Continue cephalexin prophylaxis
- Oncology OP f/u
- Pallative care OP f/u
Severe Protein Calorie Malnutrition
- Dietary following
hx of PAF
- Anticoagulant contraindicated due to thrombocytopenia
- not on rate control meds
DVT proph: Anticoagulant contraindicated due to thrombocytopenia. SCDs ordered.
Code Status: DNR
Anticipated Discharge: Within 24 hours
Subjective/Interval History
-
Date of Service: September 21, 2023
hb 7.5, no active bleeding
requiring 2 L NC today
Objective Data
-
Labs:
Laboratory Results
09/21/23
05:18
WBC 53.0 H*
Hgb 7.5 L
Hct 22.5 L
Plt Count 44 L
Vital Signs:
Vital Signs
Temp Pulse Resp BP Pulse Ox
97.5 F 70 16 104/55 95
09/21/23 07:15 09/21/23 07:15 09/21/23 07:15 09/21/23 07:15 09/21/23 10:04
I&O
09/20/23 09/21/23 09/22/23
06:59 06:59 06:59
Intake Total 250 / 250 2764 / 2764
Balance 250 / 250 2764 / 2764
Physical Exam
-
General: No Apparent Distress
HEENT: Normocephalic and Atraumatic
Respiratory: Rales
Cardiac: Regular Rhythm and S1/S2
GI: Soft
Neuro: AO x 3
Hematologic / Lymphatic: No Lymphadenopathy
Psych: Calm
Data Reviewed
-
Total Time Spent with Patient (in minutes): 51
Labs: Labs Reviewed by me
--- NOTE | 2023-09-21 13:25 | PN.CDI ---
CDI
- -
CDI:
Physician Documentation Request
Admit Date: 09/19/23 16:54
Dear Doctor Reg,
Please review the following and provide your response in the progress notes.
Clinical Indicators:
- Survey Researcher note indicates moderate protein calorie malnutrition per ASPEN criteria
- Loss of fat over orbital, tricep, rib cage
- Loss of muscle over temporal, clavicle, pectoralis, calf
- Progress notes 'Severe Protein Calorie Malnutrition'
Based on the information, which of the following most accurately represents the patient's nutritional status?
Moderate protein calorie malnutrition
Severe Protein Calorie Malnutrition as evidenced by
Other (please specify)
[place] Criteria ([facility] Hospitalist 2017)
2 or more criteria must be present for either
non severe or severe malnutrition
Note that the criteria differs related to the
presence of an acute or chronic illness
Acute Illness Chronic Illness
Energy Intake Non Severe: <75% for >7 days Non Severe: <75% for >1 month
Severe: <50% for >5 days Severe: <75% for >1 month
Weight Loss Non Severe: 1-2% over 1 week Non Severe: 5% over 1 month
5% over 1 month 7.5% over 3 months
7.5% over 3 months 10% over 6 months
1 year N/A 20% over 1 year
Severe: >2% over 1 week Severe: >5% over 1 month
>5% over 1 month >7.5% over 3 months
>7.5% over 3 months >10% over 6 months
1 year N/A >20% over 1 year
Body Fat Non Severe: Mild Decrease Non Severe: Mild Loss
Severe: Moderate Decrease Severe: Severe Loss
Muscle Mass Non Severe: Mild Decrease Non Severe: Mild Loss
Severe: Moderate Decrease Severe: Severe Loss
Fluid Accumulation Non Severe: Mild Accumulation Non Severe: Mild Accumulation
Severe: Moderate to severe Severe: Moderate to severe
accumulation accumulation
Reduced Ethylene Compressor Operator Strength Non Severe: N/A Non Severe: N/A
Severe: Measurably reduced Severe: Measurably reduced
Additional criteria that can be used to Determine if Mild or Moderate Malnutrition (Merck Manual 2018)
Mild Moderate Severe
Albumin gm/dl <3.0 gm/dl <2.5 gm/dl <2.0 gm/dl
Pre Albumin mg/dl <15 gm/dl <10 mg/dl <5.0 mg/dl
BMI <18.5 <17 <16
Use of terms such as suspected, likely, concern for, or probable (associated with a specific diagnosis that is being evaluated, monitored, or treated as if it exists) are acceptable and can be coded in the inpatient setting, when documented at the
time of discharge.
Thank you,
Jah Woodall RN
CDI Specialist
Please use your independent medical judgment in providing your response.
--- NOTE | 2023-09-21 13:31 | PN.CDI ---
CDI
- -
CDI:
Physician Documentation Request
Admit Date: 09/19/23 16:54
Dear Doctor Reg,
Please review the following and provide your response in the progress notes.
Clinical Indicators:
- 09/20 wound note indicates:
- Healing stage 2 spine and sacral pressure injury, POA
- Stage 1 b/l heels pressure injury, POA
Physician documentation of the type and location of wounds is required for compliant documentation. Based on the above clinical findings and your assessment, please provide the following in your progress note:
1. Location of the ulcer/wound, including laterality.
2. Type (etiology) of ulcer/wound:
- Diabetic ulcer
- Arterial (ischemic) ulcer
- Traumatic wound
- Venous stasis ulcer
- Pressure (decubitus) ulcer
- Non-healing surgical wound
- Other
- Unable to determine
Use of terms such as suspected, likely, concern for, or probable (associated with a specific diagnosis that is being evaluated, monitored, or treated as if it exists) are acceptable and can be coded in the inpatient setting, when documented at the
time of discharge.
Thank you,
Jah Woodall RN
CDI Specialist
Please use your independent medical judgment in providing your response.
*Source: National Pressure Ulcer Advisory Panel (NPUAP)
--- NOTE | 2023-09-21 14:50 | CM ---
Therapy recommendation is home PT vs no needs. HEADING REPAIRER had in-home services with [facility] and referral for resumption has been forwarded. Patient may need new home O2 at discharge. Will continue to follow.
[2023-09-21] MEDS: TYLENOL 650 MG PO (15:38)
[2023-09-21 15:55] LABS: Glucose - Point of Care 111 mg/dl (70-99)
[2023-09-21] MEDS: BENADRYL 25 MG IV (16:04)
--- NOTE | 2023-09-21 16:05 | W.PN.UPDATE ---
Update Note
Progress Note Update
Notified by nursing of febrile blood transfusion reaction @ 16:00
Rectal temp reported: 104.9
Evaluated bedside, STRATEGIC COMMUNICATIONS SPECIALIST in progress
Blood cultures, labs sent
Benadryl, Tylenol ordered and administered
CXR recommended
Rec ID consult if fever persists
Currently on Keflex PO TID
IVF bolus
Patient is aaox3, denies acute pain/SOB
Ice packs provided to patient
Monitor vitals closely
Discussed with Dr. Chirinos and Dr. Tom
--- NOTE | 2023-09-21 16:17 | W.PN.UPDATE ---
Addendum entered and electronically signed by Musa Tom MD 09/21/23 17:24:
Spoke to Son and Updated.
Original Note:
Update Note
Progress Note Update
Called to see the patient as patient has a fever 104.9 soon after transfusion initiated.
He tolerated transfusions well the past few days.
On examination patient is awake alert oriented x 3
He denies any complaints of chest pain shortness of breath
Cardiovascular system S1-S2 appreciated
Chest few rales
Abd soft
RLE-mild pigmentation noted-patient went to whether this is new or not. Looks chronic venous stasis changes
Warm to touch
Patient was hypotensive
Transfusion stopped
Labs for transfusion reaction sent
Benadryl 50 mg IV given, Tylenol given
IV fluid bolus to 50 given
Blood pressure better now
Change antibiotics to Ancef for now
Check chest x-ray
Blood cultures drawn
Hematology oncology JOURNALIST was at bedside discussed
Discussed with rapid response team
Left message for .
CC time 31 min
--- NOTE | 2023-09-21 16:25 | PTCARENOTE ---
Assessing vitals 103.1 oral notified primary RN. Rectal temp obtained 104.9. Primary nurse assumed action rapid response called.
[2023-09-21 16:36] LABS: Hematocrit 26.3 % (39.0-52.0); Hemoglobin 8.8 g/dL (13.0-18.0); Mean Corp Hgb Conc. 33.5 g/dL (33.0-37.0); Mean Corpuscular Volume 89.8 fL (80.0-94.0); Mean Platelet Volume 11.1 fL (7.4-10.4); Platelet Count 48 10^3/uL (130-400); Red Blood Cell Count 2.93 10^6/uL (4.70-6.10); White Blood Cell Count 38.3 10^3/uL (4.8-10.8)
[2023-09-21] MEDS: KEFLEX PO (16:42)
[2023-09-21] MEDS: TYLENOL 325 MG PO (16:46)
[2023-09-21 16:48] LABS: Lactic Acid 1.7 mmol/L (0.7-2.0)
[2023-09-21 16:50] LABS: INR 1.68; PT 19.9 Sec (11.4-14.6)
[2023-09-21 16:51] LABS: APTT 41.1 Sec (23.4-35.0)
[2023-09-21 16:55] LABS: ALT (SGPT) 26 U/L (0-50); AST (SGOT) 20 U/L (17-59); Alkaline Phosphatase 57 U/L (38-126); Atypical Lymphocytes 11 %; Band Neutrophils 1 % (0-3); Blood Urea Nitrogen 41 mg/dl (9-20); Calcium 8.3 mg/dl (8.4-10.2); Carbon Dioxide 32 mmol/L (22-30); Chloride 97 mmol/L (98-107); Eosinophils 5 % (0-6); Estimated Creatinine Clearance 57 ml/min; Glucose 96 mg/dl (70-99); Lymphocytes 20 % (20-51); Monocytes 12 % (2-9); Myelocytes 1 % (-); Normal RBC Morphology Yes; Platelets Checked Yes; Potassium 4.1 mmol/L (3.5-5.1); Segmented Neutrophils 41 % (42-75); Sodium 135 mmol/L (135-145); Total Bilirubin 1.1 mg/dl (0.2-1.3); eGFR > 60.00
[2023-09-21 16:56] LABS: Blasts 10 % (-); Nucleated Red Blood Cells 1 (-)
[2023-09-21 16:57] LABS: Total Cells Counted 100
[2023-09-21] MEDS: ANCEF 5 IV (17:03)
[2023-09-21 17:04] LABS: Troponin I 0.035 ng/ml
--- NOTE | 2023-09-21 17:38 | RR ---
A Rapid Response was called on this patient, please see Rapid Response form.
Patient receiving 1 unit PRBC, blood product verified prior to transfusion with second RN, VSS pre-transfusion and at 15 minute check point, patient with no new complaints. Vitals at 1500 obtained by student, oral temp 103.1F, rectal temp taken by
this RN 104.9F. Blood transfusion stopped, IVF started, tylenol given, patient increasingly drowsy, hypotensive with BP 67/45, rapid response called - refer to rapid response form. Cooling blanket initiated with goal rectal temp of 100.4F.
[2023-09-21 17:41] LABS: Urine Albumin Negative (Neg - Trace); Urine Bilirubin Negative (Negative); Urine Character Clear (Clear); Urine Color Yellow; Urine Glucose Negative (Negative); Urine Ketone Negative (Negative); Urine Leukocyte Negative (Negative); Urine Nitrite Negative (Negative); Urine Occult Blood Negative (Negative); Urine Urobilinogen Negative (Neg - 1+)
--- NOTE | 2023-09-21 17:47 | PTCARENOTE ---
Hospitalist made aware of rapid response, telephone orders taken for UA reflex to culture, flu and COVID nasal swabs, US B/L LE, picture of RLE TT to hospitalist. Patient states feeling better, cooling blanket on, rectal temp at this time 100.7F. BP
127/55, HR 93, 95% on 2L.
[2023-09-21 18:00] LABS: COVID-19 Antigen Negative (Negative)
[2023-09-21 21:08] LABS: Total Bilirubin 0.7 mg/dl (0.2-1.3)
[2023-09-21] MEDS: NEURONTIN 600 MG PO (21:14)
--- NOTE | 2023-09-21 21:16 | PTCARENOTE ---
Pt noted with right groin redness that extended to his inner thigh and right ischium. Area feels hard and warm to touch, pt unaware on when it started, some tenderness with palpation noted. FLIGHT SURVEYOR made aware, no new orders at this time. Pt remains on
IV Ancef, afebrile, VSS.
[2023-09-21] MEDS: NSS 500 IV (23:25)
--- NOTE | 2023-09-21 23:28 | PTCARENOTE ---
Addendum entered by Evelyne Lawson RN 09/22/23 05:06:
Pt remains hypotensive despite NSS bolus and x1 dose of midodrine 5mg given. See documented VS. Also, Pt spiked a temp of 101.6 this morning, cooling blanket on and cool compresses applied. housecalls nurse RUG MEASURER made aware again of pt's Bp and temp. Lactic
acid added to morning labs.
Original Note:
Pt with bp 83/44, 79 @ 2315. Manual BP 80/42, 82. Pt asleep and easily arousable. COLOR LABORATORY TECHNICIAN made aware of BP, 500 cc NS bolus ordered and infusing. Pt remains afebrile. Will continue to monitor VS.
[2023-09-22] VITALS (19 sets, daily range): BP systolic 72–128; BP diastolic 46–68; BMI 19.4; BMI 19.6
[2023-09-22] MEDS: ANCEF 5 IV ×2 (02:07→09:30)
[2023-09-22] MEDS: ProAmatine 5 MG PO ×2 (02:52→15:59)
[2023-09-22] MEDS: TYLENOL 650 MG PO ×3 (03:06→16:00)
[2023-09-22 04:57] LABS: Hematocrit 24.8 % (39.0-52.0); Hemoglobin 8.3 g/dL (13.0-18.0); Mean Corp Hgb Conc. 33.5 g/dL (33.0-37.0); Mean Corpuscular Hgb 29.7 pg (27.0-31.0); Mean Corpuscular Volume 88.9 fL (80.0-94.0); Mean Platelet Volume 12.8 fL (7.4-10.4); Platelet Count 50 10^3/uL (130-400); Red Blood Cell Count 2.79 10^6/uL (4.70-6.10); Red Cell Dist. Width 14.8 % (11.5-14.5); White Blood Cell Count 30.1 10^3/uL (4.8-10.8)
[2023-09-22 05:17] LABS: Lactic Acid 1.1 mmol/L (0.7-2.0)
[2023-09-22 05:19] LABS: ALT (SGPT) 21 U/L (0-50); AST (SGOT) 15 U/L (17-59); Albumin 2.4 g/dl (3.5-5.0); Alkaline Phosphatase 48 U/L (38-126); Blood Urea Nitrogen 45 mg/dl (9-20); Calcium 7.8 mg/dl (8.4-10.2); Carbon Dioxide 30 mmol/L (22-30); Chloride 99 mmol/L (98-107); Estimated Creatinine Clearance 57 ml/min; Glucose 110 mg/dl (70-99); Sodium 134 mmol/L (135-145); Total Bilirubin 0.5 mg/dl (0.2-1.3); Total Protein 4.2 g/dl (6.3-8.2); eGFR > 60.00
--- NOTE | 2023-09-22 07:58 | PTCARENOTE ---
Patient with R groin wound present on admission, red and nontender; patient states he has previously been treated for cellulitis and an abscess in the R thigh/LE 'at least five times.' This AM while on rounds with overnight nurse, RLRosanne noted to have
increasing redness and warmth throughout thigh and back of leg, patient states leg feels 'sore' and started sometime last night. MD made aware, to assess on rounds later in AM.
[2023-09-22] MEDS: NEURONTIN 300 MG PO (09:30)
--- NOTE | 2023-09-22 09:43 | W.PN.HOSP.TC ---
Today's Communication/Plan
-
CT RLE with contrast
ID/GS consults
empiric Broad spectrum Abx
Assessment / Plan
Assessment / Plan
Assessment:
Sepsis, evolved 09/21/23
- from RLE cellulitis with possible abscess
- CT RLE with contrast urgently to further characterize, r/o compartment syndrome
- Empiric Vancomycin/Cefepime added
- ID and GS consulted
- NPO for now
- fever control with Tylenol and cooling blankets
Acute hypoxic respiratory insufficiency
Pneumonia on CXR
- Empiric Vancomycin/Cefepime added
Acute high output CHF from acute anemia, on chronic HFrEF
Acute Hypoxic Respiratory Insufficiency secondary to above
- Echo in 09/15: EF was 44%
- s/p IV Lasix post transfusions
- at discharge Lasix 20mg as recently prescribed if BP can handle
Acute Myeloid Leukemia with bicytopenia (anemia, thrombocytopenia)
- s/p 3 units PRBC; repeat Hb now 8.3
- Patient receiving Vidaza weekly - Last dose Sep 15
- hold cephalexin prophylaxis with above sepsis process
- Oncology OP f/u
- Pallative care OP f/u
Severe Protein Calorie Malnutrition
- Dietary following
hx of PAF
- Anticoagulant contraindicated due to thrombocytopenia
- not on rate control meds
DVT proph: Anticoagulant contraindicated due to thrombocytopenia. SCDs ordered.
Code Status: DNR
Anticipated Discharge: > 48 hours
Subjective/Interval History
-
Date of Service: September 22, 2023
GROCERY STORE BAGGER events noted, febrile, hypotension septic appearing as opposed to transfusion reaction, IV Abx started
Overnight with recurrent fevers into this morning
patient reports RLE pain from groin downwards; reports new fluctuance in that site never occurred prior. Reports prior episodes of cellulitis treated.
Objective Data
-
Labs:
Laboratory Results
09/22/23
04:31
WBC 30.1 H
Hgb 8.3 L
Hct 24.8 L
Plt Count 50 L
Sodium 134 L
Potassium 4.0
Chloride 99
Carbon Dioxide 30
BUN 45 H
Creatinine 0.9
Glucose 110 H
Calcium 7.8 L
Total Bilirubin 0.5
AST 15 L
ALT 21
Alkaline Phosphatase 48
Vital Signs:
Vital Signs
Temp Pulse Resp BP Pulse Ox
97.0 F 116 16 107/68 92
09/22/23 07:10 09/22/23 07:10 09/22/23 07:10 09/22/23 07:10 09/22/23 07:10
I&O
09/21/23 09/22/23 09/23/23
06:59 06:59 06:59
Intake Total 2764 / 2764 1660 / 1660
Output Total 50 / 50
Balance 2764 / 2764 1610 / 1610
Physical Exam
-
General: No Apparent Distress and Appears Chronically Ill
HEENT: Normocephalic and Atraumatic
Respiratory: Rhonchi; Negative Wheezes
Cardiac: Regular Rhythm and S1/S2
GI: Soft
Musculoskeletal: Other (RLE groin cellulitis with underlying fluctuance concern for abscess tracking possible to medial thigh)
Neuro: AO x 3
Psych: Calm
Data Reviewed
-
Total Time Spent with Patient (in minutes): 51
Labs: Labs Reviewed by me
--- NOTE | 2023-09-22 10:19 | CON.GS ---
Addendum entered and electronically signed by Vikas Suarez MD 09/22/23 12:57:
I saw and examined the patient.
The Computer Compositor's note was reviewed and I agree with the note.
Comment: Comfortable, c/o fatigue/malaise. Not c/o RLE pain/tenderness. Sepsis noted. CT reviewed, no drainable collection. Impression: severe cellulitis with sepsis. No indication for surgical intervention at this time. It is possible an abscess
or collection could develop, please call GS if there is a concern for this.
Original Note:
Medical History
-
Chief Complaint: fever, sob
History of Present Illness:
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 He is on ABX for sepsis
with suspected left sided pneumonia. He has been febrile and tachycardic with significant leukocytosis (although trending down). Blood cultures positive x1 for possible ESBL (final pending). He is feeling quite tired/washed out and not offering much
history. Of note, the RLE is currently reddened from the groin down to the foot with 1-2+edema present. He is unsure how long his leg has been red and swollen this occurrence. There is an area of induration beginning in the medial right groin
palpable down to just above the knee. Skin is hot to the touch.
Past Medical History
Past Medical History: Arrhythmias (PAF) and Cancer (AML, Skin)
Past Surgical History: Hernia Repair (right inguinal), Tonsilectomy, Urological (vasectomy) and Other (MOHs, repair of detached retina, bedside I&D of right groin 09/22/22, OR I&D of right groin 10/31/22)
Social History
Tobacco: Non-Smoker
Alcohol: None
Personal:
Living: With Family
Family History
Family History: Reviewed & Not Pertinent
Allergies / Home Medications
Allergy/AdvReac Type Severity Reaction Status Date / Time
No Known Allergies Allergy Verified 08/31/23 10:08
Medication Instructions Recorded Confirmed Type
gabapentin 300 mg capsule 300 mg PO DAILY pain 03/23/23 09/19/23 History
gabapentin 300 mg capsule 600 mg PO HS pain 03/23/23 09/19/23 History
cephalexin 500 mg capsule 500 mg PO TID prophylaxis 04/24/23 09/19/23 History
polyethylene glycol 3350 17 gram 17 g PO DAILYPRN PRN constipation 05/31/23 09/19/23 History
oral powder packet (Miralax)
furosemide 20 mg tablet (Lasix) 20 mg PO DAILY Fluid 09/19/23 09/19/23 History
Retention/Swelling
Review of Systems
-
History Source: Patient
All other systems: Negative unless noted
A 10 point review of systems was completed, and was negative except as per HPI.
Physical Exam
Vital Signs
Temp Pulse Resp BP Pulse Ox
97.0 F 116 16 107/68 92
09/22/23 07:10 09/22/23 07:10 09/22/23 07:10 09/22/23 07:10 09/22/23 07:10
09/21/23 09/22/23 09/23/23
06:59 06:59 06:59
Actual Weight 57.606 kg 59.466 kg
Body Mass Index (BMI) 19.4
Lab Results
09/22/23 04:31
09/22/23 04:31
WBC 30.1 10^3/uL (4.8-10.8) H 09/22/23 04:31
Hgb 8.3 g/dL (13.0-18.0) L 09/22/23 04:31
Hct 24.8 % (39.0-52.0) L 03/01/24 04:31
Plt Count 50 10^3/uL (130-400) L 09/22/23 04:31
Abs Immat Gran (auto) Not Reportable 09/19/23 12:53
Neutrophils % Not Reportable 09/19/23 12:53
Physical Exam
General: Fever and Chills
HEENT: Moist Mucous Membranes
Respiratory: Non Labored Respirations
Cardiac: Peripheral Edema (1-2+ edema RLE)
GI: Soft and Non Tender
Skin: Warm (Hot, pale) and Other (Erythema to the RLE from groin to foot, area of induration near the medial right groin down to above the knee)
Neuro: Awake, Alert and AO x 3
Psych: Calm
Data Reviewed
-
Labs: Labs Reviewed by me, Discussed with Physician, Discussed with Nurse and Discussed with Patient
Old Records: Reviewed
Assessment / Plan
-
77 yo male with h/o AML, PAF (off AC d/t thrombocytopenia), recurrent abscess to RLE (ESBL) with prior I&D of the right groin in September and October of last year, now maintained on suppressive antibiotics who presented for evaluation of hypoxia. He is
being followed on ABX for treatment of sepsis, pneumonia and recurrent cellulitis of the RLE. Febrile currently. Leukocytosis was very significant, is now trending down. Blood culture with GNB x1 set, likely ESBL, final cultures pending.
--Obtain CT imaging of the RLE
--ID consulted for abx recommendations
--Further surgical recs to follow pending CT imaging
Discussed with hospitalist
--- NOTE | 2023-09-22 10:32 | PHA.VAN.IN ---
Assessment
- Assessment
Renal Function: Appears similar to baseline
Maximum Temperature: 104.9 - 09/21/23 16:14
Concomitant Antimicrobials: cefepime
- Previous Dosing Experience
Previous Regimen: dose by random 09/15
Patient's SCR is: Similar to previous dosing experience
Patient's weight is: Similar to previous dosing experience
AUC Dosing Plan
- Dosing Variables
Dosing Weight (kg): 60
Dosing CrCl (ml/min): 59
Vd coefficient (L/kg): 0.7
- Empiric Dosing
Initial / Loading Dose: 1500 mg loading dose
Maintenance Regimen: 1250 mg q24 - to start 0600 09/23/23
Estimated AUC (mcg*h/mL): 573
Estimated Peak (mcg*h/mL): 41.2
Estimated Trough (mcg/ml): 12.1
Estimated Half Life (H): 13
- Monitoring
No levels ordered at this time: consider levels when pt nears steady state
Pharmacokinetics Vancomycin I
- -
Patient Age: 77
Patient Sex: Male
Vancomycin Day #: 1
Indication: Skin And Soft Tissue
Requesting Provider: Reg
Height / Weight:
Height 5 ft 9 in
Actual Weight 59.466 kg
Pertinent Past Medical History: AML on weekly Vidaza
- Vital Signs / Lab Results
Temp Pulse Resp BP Pulse Ox
97.0 F 116 16 107/68 92
09/22/23 07:10 09/22/23 07:10 09/22/23 07:10 09/22/23 07:10 09/22/23 07:10
Lab Results - Hematology
09/19/23 09/20/23 09/20/23
12:53 04:13 15:15
WBC 54.9 H* 46.9 H* 50.9 H*
Band Neutrophils 1
09/21/23 09/21/23 09/22/23
05:18 16:29 04:31
WBC 53.0 H* 38.3 H 30.1 H
Band Neutrophils 0 1
Lab Results - Chemistry
09/19/23 09/20/23 09/21/23
12:53 04:13 16:29
BUN 38 H 43 H 41 H
Creatinine 0.9 0.7 0.9
Estimated Creat Clear 60 75 57
Albumin 3.3 L 3.0 L
09/22/23
04:31
BUN 45 H
Creatinine 0.9
Estimated Creat Clear 57
Albumin 2.4 L
09/21/23 09/22/23
16:15 04:47
Lactic Acid 1.7 1.1
Lab Results - Urine
09/21/23
16:30
Urine Nitrite (Reflex) Negative
Leukocyte Esterase Rfl Negative
Microbiology Results
09/21/23 16:15 Blood Culture - Preliminary
Blood/Venous Escherichia coli - ESBL
Gram Stain - Final
09/21/23 17:41 Influenza Types A & B (ELADIO) - Final
Nasal Swab Negative for Influenza A & B, NAAT
Negative results must be combined with clinical observations
and patient history.
Nucleic Acid Amplification test (NAAT)performed on the
[employer] platform.
--- NOTE | 2023-09-22 10:34 | W.PN.ONC ---
Today's Communication / Plan
-
09/21 WBC 30.1, Hgb 8.3, Hct 24.8, PLT 50
s/p 3units PRBCs w/ Lasix
Transfuse as needed to maintain Hgb >7, PLT >10
CBC w/ diff daily, monitor H/H closely
Last Vidaza administered: 09/15
Holding Eliquis due to acute thrombocytopenia
Febrile transfusion reaction during blood administration; Tmax 104.9, approximately 1/2 unit was received
CXR revealed new LLL PNA
+Blood cultures: ESBL
Monitor fevers
IV antibiotics, supportive care
CT RLE per Hospitalist
ID consult
Follow up with Dr. Rivera is scheduled 09/28 @ 0945 in [place].
This will be adjusted accordingly based on discharge planning. We will follow.
Impression
Impression
Hx AML, symptomatic anemia
Febrile transfusion reaction (09/21/23) w/ Tmax 104.9
Acute hypoxic respiratory distress
Concern for RLE cellulitis
Hx PAF
Subjective/Objective
Subjective/Objective
Patient is resting in bed. He denies pain or shortness of breath. He states he does not recall the rapid response event yesterday. He reports chills and requests blankets.
Vital Signs:
Vital Signs
Temp Pulse Resp BP Pulse Ox
97.0 F 116 16 107/68 92
09/22/23 07:10 09/22/23 07:10 09/22/23 07:10 09/22/23 07:10 09/22/23 07:10
physical exam:
aaox3, drowsy/arouses to voice, cachectic
appears chronically ill
HR tachycardic, lungs diminished 2L oxygen via NC
RLE erythema
Lab Results:
Laboratory Data
WBC 30.1 10^3/uL (4.8-10.8) H 09/22/23 04:31
Hgb 8.3 g/dL (13.0-18.0) L 09/22/23 04:31
Plt Count 50 10^3/uL (130-400) L 09/22/23 04:31
PT 19.9 Sec (11.4-14.6) H 09/21/23 16:29
INR 1.68 09/21/23 16:29
APTT 41.1 Sec (23.4-35.0) H 09/21/23 16:29
eGFR > 60.00 09/22/23 04:31
09/21/23 Bilateral PV US: No sonographic evidence for lower extremity venous thrombosis.
Orders
Orders
Orders From Last 24 Hours
09/21/23 16:00
Diphenhydramine [Benadryl] 25 mg IV NOW STA
--- NOTE | 2023-09-22 11:25 | PN.CDI ---
CDI
- -
CDI:
Physician Documentation Request
Admit Date: 09/19/23 16:54
Dear Doctor Reg,
Please review the following and provide your response in the progress notes.
Clinical Indicators:
The diagnosis of E coli ESBL was included in the signed blood culture.
Please indicate in your progress notes if you are in agreement that the above diagnosis is valid for this patient:
____ - E coli ESBL bacteremia is a valid diagnosis (Please include it in your progress notes)
____ - E coli ESBL bacteremia is not a valid diagnosis for this patient
____ - E coli ESBL bacteremia is not yet confirmed but remains a suspected condition
____ - Other
Use of terms such as suspected, likely, concern for, or probable are acceptable for a diagnosis that is being evaluated, monitored or treated as if it exists and can be coded in the inpatient setting, when documented at the time of discharge.
Thank you,
Jah Woodall RN
CDI Specialist
Please use your independent medical judgment in providing your response.
[2023-09-22] MEDS: VANCOCIN 300 ML IV (11:59)
[2023-09-22] MEDS: VANCOCIN 300 MG IV (11:59)
--- NOTE | 2023-09-22 12:07 | CON.ID ---
Consultation
-
Date/Time Consultation Requested: 09/22/23 9:48
Date/Time Consultation Performed: 09/22/23 12:08
Requesting Provider: Dr Finney
Performing Provider: Dr Townsend
Reason for Consultation: AML, sepsis cellulitis
Chief Complaint / Past History
Chief Complaint
hypoxemia
History of Present Illness
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 Not known to
have heart failure. he was started on lasix that same day however hypoxemia persisted and he was referred to the ER. No shortness of breath or fevers.
1990s mesh placement R inguinal hernia
08/26/22 ESBL E coli bacteremia/neutropenic fever
09/19/22 R groin swelling, US suggested LN, increasing pain, CT a/p lobulated mass in the groin - s/p aspiration - groin wound culture - ESBL E coli treated with meropenem -> ertapenem x2 weeks
10/29/22 groin culture: pseudomonas, e feacalis - no esbl e coli.
10/31/22 taken to the OR - no mesh found, no abscess or fluid collection 'base of the wound there was a hard and somewhat necrotic appearing lymph nodes this was removed and sent for pathology' path - scarring
03/[address] up [address] Moore - suppressive keflex and tubigrip for chronic LE edema
On arrival here 09/19 he was initially afebrile, but persistently hypotensive, wbc on arrival 54, hgb 7.0, plt 59, no left shift, cr 0.9, cxr bilateral pleural effusions and interstitial edema, LE US: no dvt, Course notable for what was assessed
as a febrile transfusion reaction : tamx 104.9 midway through unit of PRBCs. Only 1 blood culture from that day done and had ESBL e coli. UA same day no pyuria, repeat CXR: possible LLL pneumonia and loculated L pleural effusion, Rt lower
extremity: edema/cellulitis. CT with IV contrast: right leg cellulitis, inguinal lymph nodes, no abscess
Past History
Additional Past Medical History:
afib
FTT
Additional Past Surgical History:
Hernia Repair (right inguinal), Tonsilectomy, Urological (vasectomy) and Other (MOHs, repair of detached retina, bedside I&D of right groin 09/22/22, OR I&D of right groin 10/31/22)
Allergy History:
No Known Allergies Allergy (Verified 08/31/23 10:08)
Medications Reviewed: Yes
Social History
Tobacco: Non-Smoker
Alcohol: None
Drug: None
Family History
Family History: Not Pertinent
Review of Systems
Review of Systems
General: Fever and Chills
All systems: All other systems were reviewed and were negative
Vital Signs
Temp Pulse Resp BP Pulse Ox
102.9 F H 116 16 107/68 92
09/22/23 09:45 09/22/23 07:10 09/22/23 07:10 09/22/23 07:10 09/22/23 07:10
Physical Exam
Physical Exam
Constitutional: No Acute Distress
Cardiovascular: Regular Rate and S1/S2; Negative Murmur or Rub
Pulmonary: Clear and Symmetric; Negative Wheezes, Rales or Rhonchi
Gastrointestinal: Soft, Non Tender, Non Distended and Normal Bowel Sounds
Skin: Warm and Dry; Negative Rash or Jaundice
Lab / Diagnostic Study Results
09/22/23 04:31
09/22/23 04:31
Abs Immat Gran (auto) Not Reportable 09/19/23 12:53
Absolute Neuts (auto) Not Reportable 09/19/23 12:53
Absolute Lymphs (auto) Not Reportable 09/19/23 12:53
Absolute Monos (auto) Not Reportable 09/19/23 12:53
Absolute Basos (auto) Not Reportable 09/19/23 12:53
Total Counted 100 09/21/23 16:29
Immature Gran % Not Reportable 09/19/23 12:53
Neutrophils % Not Reportable 09/19/23 12:53
Lymphocytes % Not Reportable 09/19/23 12:53
Monocytes % Not Reportable 09/19/23 12:53
Eosinophils % Not Reportable 09/19/23 12:53
Basophils % Not Reportable 09/19/23 12:53
Abs Neuts (Manual) 16.0 10^3/uL (1.4-6.5) H 09/21/23 16:29
Segmented Neutrophils 41 % (42-75) L 09/21/23 16:29
Band Neutrophils 1 % (0-3) 09/21/23 16:29
Lymphocytes (Manual) 20 % (20-51) 09/21/23 16:29
Eosinophils (Manual) 5 % (0-6) 09/21/23 16:29
PT 19.9 Sec (11.4-14.6) H 09/21/23 16:29
INR 1.68 09/21/23 16:29
Lactic Acid 1.1 mmol/L (0.7-2.0) 09/22/23 04:47
Microbiology Results
Micro:
09/21/23 16:15 Blood Culture - Preliminary
Blood/Venous Escherichia coli - ESBL
Gram Stain - Final
09/21/23 17:41 Influenza Types A & B (ELADIO) - Final
Nasal Swab Negative for Influenza A & B, NAAT
Negative results must be combined with clinical observations
and patient history.
Nucleic Acid Amplification test (NAAT)performed on the
[employer] platform.
Assessment / Plan
ESBL E Coli Bacteremia
AML with chronic leukocytosis
Fever
- extensive chart review - no mesh found in the right groin on surgical exploration 09/19/22 admission and none seen on imaging. He did have an abscess s/p I&D and later resection of suspected LN (scar tissue by path). Has not had a consistent
pathogen from the right groin wound - also less likely to be a chronic infection. There is no current wound and no known nidus for infection. No vascular graft. Cellulitis of the R groin most likely due to strep in my opinion (see below)
- UA negative, pneumonia most likely source of e coli bacteremia, no port or PICC, translocation also a possibility
- US lung to assess size of effusion, note marked thrombocytopenia
- COTTON AGENT evaluation
- sputum culture if able to obtain one
- Ts need to be a consistent route to make a meaningful trend - oral Ts preferred in this patient, no further rectal Ts needed and stop cooling blanket
- agree with meropenem - dose adjusted
- follow clinically
Nonpurulent Cellulitis R Quadriceps
- no wounds in the area, no fistulae, no fluctuance
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
- most likely due to strep - well covered by meropenem
- stop vancomycin
[2023-09-22] MEDS: MERREM 500 MG IV ×2 (13:00→20:36)
[2023-09-22] MEDS: STERILE WATER FOR INJECTION 10 ML IV ×2 (13:00→20:35)
--- NOTE | 2023-09-22 14:07 | WOUNDNOTE ---
WOC RN NOTE: Patient consulted for right groin wound. Reviewed chart that states possible cellulitis. Patient currently at ultrasound. Spoke to patient RN Elida who reports there is not currently an open wound. Patient was seen by C RN earlier in
the week for sacral and spine wounds. Will continue to follow with patient during in-patient stay.
--- NOTE | 2023-09-22 16:00 | PTCARENOTE ---
Patient's axillary temp 101.2F axillary, BP 87/47 RUE. PRN tylenol given, cooling blanket DC earlier in shift per ID. MD made aware of vitals, order for PRN midodrine placed and administered. Patient states no concerns at this time.
--- NOTE | 2023-09-22 16:19 | PTOTSP ---
SPEECH THERAPY SWALLOW EVALUATION:
Clinical signs of oropharyngeal dysphagia, likely acute related to deconditioning/lethargy secondary to sepsis/pneumonia and acute myeloblastic leukemia. Patient is at high risk for aspiration and related complications given tenuous
respiratory/pulmonary status and overall weakness. Recommend Videofluoroscopic Swallowing Study to further assess patient's swallow function.
Recommend:
1) Videofluoroscopic Swallowing Study to further assess patient's swallow function
2) patient to be temporary NPO until VSE
3) necessary medications whole in puree
4) ARHP via small single ice chips and small single sips of water via cup with aspiration precautions in place: NO STRAW, following oral care, upright positioning, only when awake/alert
5) oral care QID and increased mobility as tolerated/able to minimize risk for nosocomial infection
6) Speech therapy to follow and provide further recommendations following VSE
--- NOTE | 2023-09-22 16:21 | CM ---
Patient with cellulitis RLE. ID, Surgical and wound consults ordered. Will follow medical progression and identify needs thereafter.
--- NOTE | 2023-09-22 17:12 | W.PN.UPDATE ---
Addendum entered and electronically signed by Chasity Finney MD 09/22/23 17:44:
d/w Cardiology Laila and family, ok for pressors, start Levophed, continue Amio. DNR confirmed by family
Original Note:
Update Note
Progress Note Update
rapid AFib with HRS 140s, hypotensive. Urgent cardiology consult placed. d/w Son and would like intervention performed but with DNR status probably not cardioversion candidate
[2023-09-22] MEDS: CORDARONE 103 MG IV (17:50)
[2023-09-22] MEDS: CORDARONE 518 MG IV (17:54)
--- NOTE | 2023-09-22 18:14 | CON.CAR ---
Consultation
Consultation Request
Date/Time Consultation Requested: September 22 2023 5 15 pm
Date/Time Consultation Performed: September 22 2023 530 pm
Requesting Provider: hospitalist
Performing Provider: sarath sevilla
Reason for Consultation: af rvr
Medical History
-
Chief Complaint: hypoxemia
History of Present Illness:
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
failure.� he was started on lasix that same day however hypoxemia persisted and he was referred to the ER.� No shortness of breath or fevers.�
He was found to have AF RVR this evening with hypotension, this is likely sepsis related and in response to AML and sepsis. I had a long discussion with son Jay who chatted with DAVINA mother and they confirmed no heroic measures including CPR,
intubation, or DCCV.
Past Medical History
Past Medical History: Other (AML, PAF (off AC d/t thrombocytopenia), recurrent abscess/cellulitis to RLE (+ESBL) with prior I&D on 10/31/2022)
Past Surgical History: Other (Hernia Repair (right inguinal), Tonsilectomy, Urological (vasectomy) and Other (MOHs, repair of detached retina, bedside I&D of right groin 09/22/22, OR I&D of right groin 10/31/22))
Social History
Tobacco: Non-Smoker
Alcohol: None
Drug: None
Personal:
Living: With Family
Family History
Family History: Reviewed & Not Pertinent
Allergies / Home Medications
Allergy/AdvReac Type Severity Reaction Status Date / Time
No Known Allergies Allergy Verified 08/31/23 10:08
Medication Instructions Recorded Confirmed Type
gabapentin 300 mg capsule 300 mg PO DAILY pain 03/23/23 09/19/23 History
gabapentin 300 mg capsule 600 mg PO HS pain 03/23/23 09/19/23 History
cephalexin 500 mg capsule 500 mg PO TID prophylaxis 04/24/23 09/19/23 History
polyethylene glycol 3350 17 gram 17 g PO DAILYPRN PRN constipation 05/31/23 09/19/23 History
oral powder packet (Miralax)
furosemide 20 mg tablet (Lasix) 20 mg PO DAILY Fluid 09/19/23 09/19/23 History
Retention/Swelling
Review of Systems
-
All other systems: Negative unless noted
Physical Exam
Vital Signs
Temp Pulse Resp BP Pulse Ox
101.2 F H 106 16 87/47 93
09/22/23 15:03 09/22/23 15:59 09/22/23 15:03 09/22/23 15:59 09/22/23 15:03
Lab Results
09/22/23 04:31
09/22/23 04:31
Troponin I 0.035 ng/ml H* 09/21/23 16:29
Rjx-B-Jhoxpyywieb Pept 1420 pg/ml 09/19/23 12:53
Physical Exam
General: Other (chronically ill appearing )
HEENT: Normocephalic and Anicteric
Respiratory: Rhonchi (mild)
Cardiac: Irregular Rhythm (tachycardic )
GI: Soft
Musculoskeletal: Other (RLE erythema to hip )
Skin: Warm and Dry
Neuro: Awake, Alert and Oriented (mildly confused )
Impression / Plan
-
77-year-old male with past medical history of AML, paroxysmal atrial fibrillation not on anticoagulation due to thrombocytopenia, recurrent abscess and cellulitis of the right lower extremity who is here for hypoxia and recurrence of his cellulitis.
This evening he was found to be in A-fib with RVR and hypotensive.
A-fib RVR after discussion with son and mother confirmed no CPR, intubation, or cardioversion
-Amiodarone drip
-Platelet count of 50 consider anticoagulation if continues to rise
Sepsis and likely septic shock secondary to cellulitis and pneumonia
-Antibiotics per primary
-Recommend starting Levophed
Possible heart failure
-Hold diuretics at this point he does not appear very volume overloaded
AML
-Per primary
Severe protein calorie malnutrition
He is critically ill and his prognosis remains guarded
Data Reviewed
-
EKG: Tracing Personally Visualized and interpreted
Medical Tests (Nuc Med, Echo etc): Image Personally Visualized and interpreted and Report Reviewed by me
Labs: Labs Reviewed by me, Discussed with Physician and Discussed with Family
[2023-09-22] MEDS: LEVOPHED 250 IV ×2 (18:20→23:39)
--- NOTE | 2023-09-22 18:30 | PTCARENOTE ---
Patient's media monitor alarmed showing sustained afib HR 140s. EKG obtained by RN showing afib with RVR, results sent to MD. Repeat BP after PRN midodrine 76/46 HR 147 on monitor, manual BP obtained by RN 80/38, axillary temp 101.3F after PRN
tylenol. Patient drowsy, AAOX3 with slow speech and confusion at times. MD made aware, at bedside; cardiology notified by MD, amiodarone gtt and levophed gtt ordered and initiated at bedside per protocol. Patient transferred to ICU room 3359, report
given to Adolfo LEYVA.
[2023-09-22] MEDS: NEURONTIN 600 MG PO (21:23)
[2023-09-22] MEDS: NEO-SYNEPHRINE 250 IV (22:45)
[2023-09-22 23:03] LABS: ALT (SGPT) 19 U/L (0-50); AST (SGOT) 22 U/L (17-59); Albumin 2.4 g/dl (3.5-5.0); Alkaline Phosphatase 55 U/L (38-126); Blood Urea Nitrogen 47 mg/dl (9-20); Calcium 7.7 mg/dl (8.4-10.2); Carbon Dioxide 31 mmol/L (22-30); Chloride 96 mmol/L (98-107); Estimated Creatinine Clearance 48 ml/min; Glucose 161 mg/dl (70-99); Potassium 3.8 mmol/L (3.5-5.1); Sodium 130 mmol/L (135-145); Total Bilirubin 0.6 mg/dl (0.2-1.3); Total Protein 4.3 g/dl (6.3-8.2); eGFR > 60.00
[2023-09-22] MEDS: OFIRMEV 100 IV (23:14)
[2023-09-22] MEDS: NSS 250 IV (23:35)
--- NOTE | 2023-09-22 23:39 | PTCARENOTE ---
[id number]: Received patient in bed on 2L o2/nc, Levophed at 5 mcg/min, and Amiodarone gtt at 1 mg/min. Levophed titrated to maintain MAP of 65 mmHg. Patient has silicone border foams on his mid back and a sacral foam.The patient is awake and alert
x3. Able to make his needs known. Patient denies pain. MAEx4. Plan of care for the shift reviewed with the patient.
[id number]: Patient assessed. pt's nodding off between care. Plan of care for the shift reviewed with the patient's children. Pt's Afib on the monitor with HR 120s-130s. Doppler pulses present to bilateral DP. Radial pulses are palpable. +2 pitting
edema to left foot. RLE is warm and red with some mottling to the leg. JEWEL STAKER at the bedside. Continued with Levophed titration. Order for PICC placement. Per JEWEL STAKER, initiate ronnie-synephrine once PICC line is placed and begin to wean the patient off
Levophed. Labs to be drawn post PICC line placement. Fine crackles throughout. SpO2 at 95% on 2L. The patient desaturated to SpO2 86% when attempted to wean off oxygen. Hypoactive BS. Patient is incontinent of large amount of urine on the absorbant
pad. Patient cleansed and full linen change completed. #25 condom catheter placed. Rectal probe placed. Pt's temp 101.5. room temp decreased and blankets removed.
~[id number]: PICC team at the bedside. okay to use PICC line per [place]. Labs drawn and sent.
New lines primed. Levophed, and Amiodarone transferred to right PICC line.
2245: Ronnie-Synephrine initiated at 20 mcg/min.
2314: Ofirmev administered for temp 101.2.
2335: Normal saline 250 mL bolus ordered and administered.
[2023-09-23] VITALS (83 sets, daily range): BP systolic 79–120; BP diastolic 40–75; BMI 19.5
--- NOTE | 2023-09-23 01:21 | PTCARENOTE ---
Patient reassessed. Continues to follow commands. Pt's on Ronnie-synephrine and Levophed. Weaning Levophed as per CHILD AND FAMILY THERAPIST order. Patient is sinus rhythm on the monitor with HR in the 80s. The patient has frequent, wet cough but non productive cough. SpO2 at
91%. Oxygen increased to 4L via nasal cannula. Turns and repositioning continued. Safety measures maintained. Call paez is within reach.
[2023-09-23] MEDS: MERREM 500 MG IV ×4 (02:03→19:43)
[2023-09-23] MEDS: STERILE WATER FOR INJECTION 10 ML IV ×4 (02:03→19:43)
--- NOTE | 2023-09-23 02:04 | PTCARENOTE ---
[id number]: Pt's had no UOP since 2100 incontinence. unable to void via condom catheter. Patient encouraged to void via urinal without success. Bladder scanned the patient for 425 ml. Straight cath protocol explained to the patient. Pt verbalized
agreement. Pt then straight cathed for 500 ml of jorge urine. Repeat bladder scan post straight catheterization for 0 cc.
[2023-09-23 04:05] LABS: Hematocrit 24.8 % (39.0-52.0); Hemoglobin 8.5 g/dL (13.0-18.0); Mean Corp Hgb Conc. 34.3 g/dL (33.0-37.0); Mean Corpuscular Hgb 30.6 pg (27.0-31.0); Mean Corpuscular Volume 89.2 fL (80.0-94.0); Mean Platelet Volume 12.2 fL (7.4-10.4); Platelet Count 79 10^3/uL (130-400); Red Blood Cell Count 2.78 10^6/uL (4.70-6.10); Red Cell Dist. Width 15.4 % (11.5-14.5)
[2023-09-23 04:11] LABS: White Blood Cell Count 59.4 10^3/uL (4.8-10.8)
[2023-09-23 04:19] LABS: APTT 74.7 Sec (23.4-35.0)
[2023-09-23 04:30] LABS: Blood Urea Nitrogen 46 mg/dl (9-20); Calcium 7.4 mg/dl (8.4-10.2); Carbon Dioxide 27 mmol/L (22-30); Chloride 98 mmol/L (98-107); Estimated Creatinine Clearance 44 ml/min; Glucose 189 mg/dl (70-99); Potassium 3.5 mmol/L (3.5-5.1); Sodium 129 mmol/L (135-145); eGFR > 60.00
[2023-09-23] MEDS: KCL 100 IV (04:52)
--- NOTE | 2023-09-23 04:55 | PTCARENOTE ---
Patient reassessed. continues to follow commands and make his needs known. Labs resulted. Patient ordered potassium chloride 40 meq IV for potassium 3.5, and calcium gluconate 2 grams for calcium 7.4. Patient remains on oxygen 4 liters with SpO2 at
96%. Patient had a smear of green BM. Pt cleansed and linens changed. Pt assisted with repositioning. Safety measures maintained.
[2023-09-23] MEDS: CALCIUM GLUCONATE 100 IV (05:15)
[2023-09-23] MEDS: LEVOPHED 250 IV ×2 (07:45→23:54)
[2023-09-23] MEDS: NEURONTIN 300 MG PO (07:56)
--- NOTE | 2023-09-23 08:00 | PTCARENOTE ---
Pt received @ change of shift, assessment as charted-see flow sheet. Levo/meryl/amio gtts infusing via R DL PICC, dressing c/d/i. Assisted w repositioning. Intstructed on how to report care concerns and call paez w in reach.
[2023-09-23 09:22] LABS: Band Neutrophils 2 % (0-3); Eosinophils 4 % (0-6); Lymphocytes 15 % (20-51); Monocytes 14 % (2-9); Myelocytes 2 % (-); Segmented Neutrophils 30 % (42-75)
[2023-09-23 09:23] LABS: Acanthocytes 1+; Anisocytosis Slight; Hypochromasia Slight; Normal RBC Morphology No; Ovalocytes FEW; Platelets Checked Yes; Polychromasia 1+; Total Cells Counted 100
[2023-09-23 09:24] LABS: Blasts 33 % (-)
--- NOTE | 2023-09-23 09:51 | W.PN.ID1 ---
Date of Service
Date of Service: September 23, 2023
Today's Communication
Continue meropenem.
Assessment / Plan
ESBL E Coli Bacteremia
AML with chronic leukocytosis
Fever - persists
- extensive chart review - no mesh found in the right groin on surgical exploration 09/19/22 admission and none seen on imaging. He did have an abscess s/p I&D and later resection of suspected LN (scar tissue by path). Has not had a consistent
pathogen from the right groin wound - also less likely to be a chronic infection. There is no current wound and no known nidus for infection. No vascular graft. Cellulitis of the R groin most likely due to strep in my opinion (see below)
- UA negative, pneumonia most likely source of e coli bacteremia, no port or PICC, translocation also a possibility
- US lung to assess size of effusion, note marked thrombocytopenia
- CANAL STRUCTURE OPERATOR evaluation
- sputum culture if able to obtain one
- Ts need to be a consistent route to make a meaningful trend - oral Ts preferred in this patient, no further rectal Ts needed and stop cooling blanket
- Continue with meropenem - dose adjusted
-Repeat blood cx's
- follow clinically
Nonpurulent Cellulitis R Quadriceps
- no wounds in the area, no fistulae, no fluctuance
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
- most likely due to strep - well covered by meropenem
Chief Complaint
-: Bacteremia
Subjective / Review of Systems
+ intermittent cough. Right leg stable.
Vital Signs / Physical Exam
Vital Signs
Vital Signs
Temp Pulse Resp BP Pulse Ox
99.9 F 79 17 105/54 94
09/23/23 07:35 09/23/23 07:25 09/23/23 07:25 09/23/23 07:25 09/23/23 07:49
Selected Entries
09/22/23
20:50
Temp 101.5 F H
Physical Exam
Constitutional: Chronically Ill and Cachetic
Eyes: Sclera Anicteric
Pulmonary: Coarse (left base)
Gastrointestinal: Soft, Non Tender and Non Distended
Extremities: Edema (RLE 3+) and Erythema (right medial thigh + erythema/induration and warmth)
Lines: PICC (RUE)
Objective Data
Lab Data
Lab Results
09/23/23 03:54
09/23/23 03:54
PT 19.9 Sec (11.4-14.6) H 09/21/23 16:29
INR 1.68 09/21/23 16:29
APTT 74.7 Sec (23.4-35.0) H 09/23/23 03:54
Estimated Creat Clear 44 ml/min 09/23/23 03:54
Lactic Acid 1.0 mmol/L (0.7-2.0) 09/22/23 22:35
Total Bilirubin 0.6 mg/dl (0.2-1.3) 09/22/23 22:35
AST 22 U/L (17-59) 09/22/23 22:35
ALT 19 U/L (0-50) 09/22/23 22:35
Alkaline Phosphatase 55 U/L (38-126) 09/22/23 22:35
Most recent labs reviewed.
Micro Results:
09/21/23 16:15 Blood Culture - Preliminary
Blood/Venous Escherichia coli - ESBL
Gram Stain - Final
09/21/23 17:41 Influenza Types A & B (ELADIO) - Final
Nasal Swab Negative for Influenza A & B, NAAT
Negative results must be combined with clinical observations
and patient history.
Nucleic Acid Amplification test (NAAT)performed on the
[employer] platform.
--- NOTE | 2023-09-23 10:00 | W.PN.CD ---
Today's Communication / Plan
-
Now in SR, can stop amio, consider AC with Eliquis 5 mg bid if OK from hematology perspective
Goals of care discussion
Impression / Plan
-
77-year-old male with past medical history of AML, paroxysmal atrial fibrillation not on anticoagulation due to thrombocytopenia, recurrent abscess and cellulitis of the right lower extremity who is here for hypoxia and recurrence of his cellulitis.
This evening he was found to be in A-fib with RVR and hypotensive.
A-fib RVR after discussion with son and mother confirmed no CPR, intubation, or cardioversion
- now in SR
-Can stop amiodarone
-Eliquis bid if no contraindication
Sepsis and likely septic shock secondary to cellulitis and pneumonia
-Antibiotics per primary
-inotropes
Possible heart failure
-gentle diuresis when able
AML
-Per primary
Severe protein calorie malnutrition
He is critically ill and his prognosis remains guarded
Physical Exam
Vital Signs/Labs
Vital Signs
Temp Pulse Resp BP Pulse Ox
99.9 F 79 17 105/54 94
09/23/23 07:35 09/23/23 07:25 09/23/23 07:25 09/23/23 07:25 09/23/23 07:49
09/22/23 09/23/23 09/24/23
06:59 06:59 06:59
Actual Weight 131 lb 1.6 oz 132 lb 4.438 oz
09/23/23 03:54
09/23/23 03:54
PT 19.9 Sec (11.4-14.6) H 09/21/23 16:29
INR 1.68 09/21/23 16:29
APTT 74.7 Sec (23.4-35.0) H 09/23/23 03:54
09/19/23
12:53
Ftm-Z-Oostfvhbtke Pept 1420
LAB Results
09/21/23
16:29
Troponin I 0.035 H*
Physical Exam
Constitutional: Other (chronically ill appearing )
EENT: Anicteric
Cardiovascular: Rhythm & rate is regular and Pedal edema present (1+ b/l )
Respiratory: Respiratory effort normal and Lungs clear to auscul.
GI: Soft
Neuro/Psych: Alert and Oriented
Data Reviewed
-
Date of Service: September 23, 2023
EKG: Tracing Personally Visualized and interpreted
Labs: Labs Reviewed by me
[2023-09-23] MEDS: NEO-SYNEPHRINE 250 IV ×2 (10:58→18:21)
--- NOTE | 2023-09-23 12:00 | PTCARENOTE ---
Pt. son @ bedside, updated on plan of care. Pt.'s call paez remains w in reach.
--- NOTE | 2023-09-23 14:33 | W.PN.HOSP.TC ---
Today's Communication/Plan
-
continue IV Abx
monitor cultures
wean pressors
continue Amio
Assessment / Plan
Assessment / Plan
Assessment:
Sepsis, evolved 09/21/23; now with septic shock
ESBL bacteremia
- from RLE cellulitis, severe
- CT RLE without abscess; GS Signed off
- continue Merrem, day 2
- ID following
- fever control with Tylenol and cooling blankets prn
- on Levophed and Ronnie-synephrine - wean as able
Rapid AFib
- on Amio drip
- now in NSR
- CBC cards following
- Anticoagulant contraindicated due to thrombocytopenia
Hyponatremia, likely ADH drive from hypotensive state
Acute hypoxic respiratory insufficiency
Pneumonia on CXR
- continue Merrem, day 2
Acute high output CHF from acute anemia, on chronic HFrEF
Acute Hypoxic Respiratory Insufficiency secondary to above
- Echo in 09/15: EF was 44%
- s/p IV Lasix post transfusions
- at discharge Lasix 20mg as recently prescribed if BP can handle
Acute Myeloid Leukemia with bicytopenia (anemia, thrombocytopenia)
- s/p 3 units PRBCs; repeat Hb now 8.5
- Patient receiving Vidaza weekly - Last dose Sep 15
- hold cephalexin prophylaxis with above sepsis process
- Oncology OP f/u
- Palliative care OP f/u
Moderate Protein Calorie Malnutrition
- Dietary following
Healing stage 2 spine and sacral pressure injury, POA
Stage 1 b/l heels pressure injury, POA
- wound care
DVT proph: Anticoagulant contraindicated due to thrombocytopenia. SCDs ordered.
Code Status: DNR
Anticipated Discharge: > 48 hours
Subjective/Interval History
-
Date of Service: September 23, 2023
remains pressor dependant on levo and ronnie
also on amio - in NSR
Objective Data
-
Labs:
Laboratory Results
09/23/23
03:54
WBC 59.4 H*
Hgb 8.5 L
Hct 24.8 L
Plt Count 79 L D
APTT 74.7 H
Sodium 129 L
Potassium 3.5
Chloride 98
Carbon Dioxide 27
BUN 46 H
Creatinine 1.2
Glucose 189 H
Calcium 7.4 L
Vital Signs:
Vital Signs
Temp Pulse Resp BP Pulse Ox
100.1 F 79 17 105/54 94
09/23/23 11:00 09/23/23 07:25 09/23/23 07:25 09/23/23 07:25 09/23/23 07:49
I&O
09/22/23 09/23/23 09/24/23
06:59 06:59 06:59
Intake Total 1660 / 1660 1296.8 / 1379.5 165.4 / 165.4
Output Total 50 / 50 600 / 600
Balance 1610 / 1610 696.8 / 779.5 165.4 / 165.4
Physical Exam
-
General: No Apparent Distress
HEENT: Normocephalic and Atraumatic
Cardiac: Regular Rhythm and S1/S2
Genito-urinary: No Costovertebral Tender
Musculoskeletal: Other (RLE thigh edema/redness)
Neuro: AO x 3
Psych: Calm
Data Reviewed
-
Critical Care Time (in minutes): 40
Labs: Labs Reviewed by me
--- NOTE | 2023-09-23 17:00 | PTCARENOTE ---
Attempted to wean off levo gtt, unable to keep MAP >65, levo gtt back on. Remains on levo/meryl/amio gtts- see flow sheet. Attempted to wean to RA, SpO2 dropped to 84%, 2LNC reapplied and SpO2 maintaining 94%. Pt. had 3rd large BM today, stool noted
to be loose dark brown. Heme positive. Dr. Finney made aware and further orders received. Pt. assisted w repositioning, call paez in reach.
--- NOTE | 2023-09-23 17:18 | W.PN.UPDATE ---
Update Note
Progress Note Update
RN reports large BM, heme positive without gross bleeding seen. Will add PPI IV BID. Await family arrival to determine goals of care
[2023-09-23] MEDS: NSS (PRESERVATIVE FREE) 10 ML IV (18:21)
[2023-09-23] MEDS: CORDARONE 518 MG IV (18:21)
[2023-09-23] MEDS: PROTONIX IV 40 MG IV (18:21)
[2023-09-23] MEDS: OFIRMEV 100 IV (19:55)
[2023-09-23] MEDS: NEURONTIN 600 MG PO (21:53)
--- NOTE | 2023-09-23 23:58 | PTCARENOTE ---
[id number]: Received patient in bed on Ronnie-Synephrine at 120 mcg/min, Levophed at 4 mcg/min, and Amiodarone gtt at 0.5 mg/min. All gtt infusing via right PICC line. The patient is AAOx3 and able to make his needs known. Complains of mild headache.
Plan of care for the shift reviewed with the patient and the patient's family-spouse and children. Questions encouraged. Patient is sinus rhythm on the monitor with HR in the 60s. Temp 100.1. Doppler pulses are present to bilateral DPs. Diminished
breath sounds. SpO2 at 94% on 2L/O2 nc. Hypoactive BS. Patient bladder scanned for 305 cc.Sacral foam and back dressings are cdi. Scheduled medications and Ofirmev administered. Mouth care provided. Safety measures maintained.
~2129- The patient had had a medium dark brown soft stool. Pt cleansed and pads changed.
[2023-09-24] VITALS (95 sets, daily range): BP systolic 75–114; BP diastolic 44–75; BMI 19.4
[2023-09-24] MEDS: NEO-SYNEPHRINE 250 IV ×5 (01:04→22:41)
[2023-09-24] MEDS: MERREM 500 MG IV ×4 (01:26→19:53)
[2023-09-24] MEDS: STERILE WATER FOR INJECTION 10 ML IV ×4 (01:26→19:52)
--- NOTE | 2023-09-24 01:35 | PTCARENOTE ---
[id number]: Patient reassessed. Remains AAOx3. Sinus rhythm on the monitor. vasopressors titrated as per order/protocol. Patient unable to void. Pt bladder scanned for 547 cc and straight cath for 620 cc of dark jorge urine. Post scan for 27 mL. The
patient tolerated well. Pt's spouse remains at the bedside. PT cleansed with CHG wipes. Full linen change completed. Pt's back silicone border foams changed. Small open wound to lower mid back/spine. Sacral foam replaced. PAtient turned and
repositioned. No further changes from the previous assessment.
--- NOTE | 2023-09-24 04:46 | PTCARENOTE ---
Patient reassessed. Remains drowsy but oriented x3. No further changes from previous assessment. Lab results still pending. Safety measures maintained.
[2023-09-24 04:51] LABS: Hematocrit 22.4 % (39.0-52.0); Hemoglobin 7.4 g/dL (13.0-18.0); Mean Corpuscular Hgb 29.5 pg (27.0-31.0); Mean Corpuscular Volume 89.2 fL (80.0-94.0); Mean Platelet Volume 12.6 fL (7.4-10.4); Platelet Count 52 10^3/uL (130-400); Red Blood Cell Count 2.51 10^6/uL (4.70-6.10); Red Cell Dist. Width 16.1 % (11.5-14.5)
[2023-09-24 04:56] LABS: Blood Urea Nitrogen 48 mg/dl (9-20); Calcium 7.6 mg/dl (8.4-10.2); Carbon Dioxide 26 mmol/L (22-30); Chloride 102 mmol/L (98-107); Estimated Creatinine Clearance 48 ml/min; Glucose 157 mg/dl (70-99); Magnesium 1.8 mg/dl (1.6-2.3); Potassium 3.6 mmol/L (3.5-5.1); Sodium 131 mmol/L (135-145); eGFR > 60.00
[2023-09-24 06:19] LABS: White Blood Cell Count 77.2 10^3/uL (4.8-10.8)
[2023-09-24] MEDS: NSS (PRESERVATIVE FREE) 10 ML IV ×2 (07:43→19:54)
[2023-09-24] MEDS: PROTONIX IV 40 MG IV ×2 (07:43→19:53)
[2023-09-24 07:56] LABS: Absolute Neutrophils -Man Diff 24.7 10^3/uL (1.4-6.5); Band Neutrophils 4 % (0-3); Eosinophils 3 % (0-6); Lymphocytes 17 % (20-51); Monocytes 14 % (2-9); Myelocytes 3 % (-); Segmented Neutrophils 28 % (42-75)
[2023-09-24 07:57] LABS: Platelets Checked Yes
[2023-09-24 07:58] LABS: Acanthocytes 1+; Anisocytosis 1+; Hypochromasia 1+; Normal RBC Morphology No; Polychromasia Slight; Total Cells Counted 100
[2023-09-24] MEDS: ULTRAM 50 MG PO (07:58)
[2023-09-24] MEDS: NEURONTIN 300 MG PO (07:58)
[2023-09-24 07:59] LABS: Blasts 31 % (-)
--- NOTE | 2023-09-24 08:00 | PTCARENOTE ---
Received pt @ change of shift. Pt. drowsy, awakens to verbal stimuli, oriented x3. C/O moderate back pain, admin prn and assisted w repositioning. SR w 1st degree AVB and BBB w PVC's. +3 RLE, +2LLE. Pedal pulses by doppler. SpO2 98% on 4LNC.
Hypoactive BS, cont of BM, bedpan utilized as needed. Difficulty urinating, BS/SC prn. Amio/levo/meryl gtts infusing via R DL PICC- see flow sheet. Pt. instructed on how to report care concerns and call paez w in reach.
--- NOTE | 2023-09-24 08:11 | PTOTSP ---
Reviewed chart and noted pt transferred to ICU on 09/21. PT orders were not continued upon transfer. Will need new orders for PT (and OT) if appropriate and able to resume activity.
--- NOTE | 2023-09-24 08:40 | CON.INTV ---
Consultation
Consultation Request
Date/Time Consultation Requested: 09/24/2023458
Date/Time Consultation Performed: 09/24/2023 - 834
Requesting Provider: OMID Hull
Performing Provider: Dr. Dong
Reason for Consultation: Shock on vasopressor
Medical History
-
Chief Complaint: Hypoxia
History of Present Illness:
77 old male with a past medical history of AML on chemo, anemia, paroxysmal A-fib, and former tobacco use disorder presents with hypoxia. Patient instructed to come to the ER by his palliative care physician, Dr. Solis, who was visiting the
patient at his house. In the ER patient hypotensive to 94/52, SpO2 94% on room air, respiratory rate 20 breaths/min, and pulse rate 86 bpm. Patient had crackles bilaterally on exam with bilateral lower extremity swelling. Labs showed leukocytosis
to 54.9, anemia with Hb of 7 (baseline Hb 7-9 g/dL), and thrombocytopenic with platelet count 59. There is 14% blasts. CXR showed small bilateral pleural effusions. Patient was admitted to the hospitalist service, and 1 unit PRBC was transfused.
Unfortunately his hemoglobin did not rise appropriately and he has required another 2 PRBC transfusions between 09/20 � 09/21/2023. Medical oncology was consulted. On patient developed a left lower lobe pneumonia. Of note, UA negative for
signs of UTI. CT of right lower extremity done on 09 21 shows extensive subcutaneous stranding/edema in the RLE suspicious for cellulitis with no abscess or organized fluid collection seen. Patient was initially started antibiotics for suspected
lower extremity cellulitis with Ancef was changed to meropenem on 09/21 (also givne IV vanco on 09/21). Blood Cx started growing ESBL-E.coli on 09/23/2023 via blood Cx from 09/21/2023. Pt unfortunately became more hypotensive and was started on
vasopressors and TRX to ICU for further care. Commercial Analyst/pulmonayr services consulted for additional recommendations/management.
When I saw the patient he was in bed, awake, alert, at bedside and resting comfortably on 4 L/min nasal cannula. SpO2 98%, BP 101/56, heart rate 66. He remains on vasopressors with Levophed at 4mcg/min, meryl at 160mcg/min and amio at
0.5mg/min. Currently does not have any complaints. He denies headache, chest pain, shortness of breath, fevers or chills. Patient's last fever was last night and 2302 with temperature to 100.9 �F.
PMHx: AML, paroxysmal A-fib, former tobacco use disorder, history of COVID-19 x2 (08/2021; 02/2023), impaired vision, anemia
PSHx: Tonsillectomy, vasectomy, detached retina repair, Mohs procedure, I&D of right groin abscess, right inguinal hernia s/p mesh
Past Medical History
Past Medical History: Other (above as per HPI)
Past Surgical History: Other (above as per HPI)
Social History
Tobacco: Non-smoker
Alcohol: None
Drug: None
Personal:
Living: With Family
Family History
Family History: Reviewed & Not Pertinent
Allergies / Home Medications
Allergies
Allergy/AdvReac Type Severity Reaction Status Date / Time
No Known Allergies Allergy Verified 08/31/23 10:08
Home Medications
Medication Instructions Recorded Confirmed Last Taken Type
gabapentin 300 mg capsule 300 mg PO DAILY pain 03/23/23 09/19/23 09/19/23 History
gabapentin 300 mg capsule 600 mg PO HS pain 03/23/23 09/19/23 09/18/23 History
cephalexin 500 mg capsule 500 mg PO TID prophylaxis 04/24/23 09/19/23 09/19/23 History
polyethylene glycol 3350 17 gram 17 g PO DAILYPRN PRN constipation 05/31/23 09/19/23 09/19/23 History
oral powder packet (Miralax)
furosemide 20 mg tablet (Lasix) 20 mg PO DAILY Fluid 09/19/23 09/19/23 09/19/23 History
Retention/Swelling
Review of Systems
-
History Source: Patient
All other systems: Negative unless noted (12 point ROS performed and is negative unless mentioned above.)
Vitals / Labs / Diagnostic Testing
Vital Signs
Temp Pulse Resp BP Pulse Ox
99.2 F 77 20 95/54 98
09/24/23 07:23 09/24/23 09:00 09/24/23 09:00 09/24/23 08:45 09/24/23 09:07
Lab Data
09/24/23 03:42
09/24/23 03:42
Microbiology
09/21/23 16:15 Blood/Venous Blood Culture - Preliminary
Escherichia coli - ESBL
09/21/23 16:15 Blood/Venous Gram Stain - Final
09/21/23 17:41 Nasal Swab Influenza Types A & B (ELADIO) - Final
Negative for Influenza A & B, NAAT
Negative results must be combined with clinical observations
and patient history.
Nucleic Acid Amplification test (NAAT)performed on the
[employer] platform.
Diagnostic Testing:
Physical Exam
-
HEENT: Normocephalic and Anicteric
Cardiovascular: S1/S2 and Peripheral Edema (+1 edema on RLE)
Respiratory: Wheeze (negative), Rales (negative), Rhonchi (bilaterally (L>R)) and Non-Labored Respirations
GI: Soft, Non Distended and Non Tender
Neurology: AO x 3
Skin: Warm, Dry and Other (Circumferential erythema seen on RLE and erythema also seen on proximal RLE)
General: Comfortable and Chills (negative)
Assessment
-
Assessment: 77-year-old male with a PMHx of AML on chemo, anemia, paroxysmal A-fib, and former tobacco use disorder presents with hypoxia. Patient initially hypotensive in the ER and there was concern for volume overload with acute on chronic
anemia. Patient was only given Lasix x 1 due to hypotension, and he required multiple units PRBC transfusions. Patient developed a left lower lobe pneumonia, and was also being treated for a RLE cellulitis. Blood cultures started to grow ESBL�E.
coli and hypotension worsened requiring vasopressors. Patient transferred to ICU with top collar baster services consulted for additional management/recommendations.
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
Impression:
#Shock - due to sepsis with ESBL-E. coli bacteremia, pneumonia and RLE cellulitis
#CAP
#Acute respiratory failure with hypoxemia -multifactorial due to pneumonia, volume overload and shock with acute organ dysfunction
#Non-purulent RLE cellulitis
#Chronic anemia/thrombocytopenia (baseline plt is 200-330, baseline Hb 7-9)
#Leukocytosis - likely due to acute infection in the setting of known AML with progression
#Hyponatremia
#Hyperglycemia
#Hypoalbuminemia
#AML on chemotherapy
#Hx of A-fib
Plan:
- Continue vasopressors with goal MAP>65
- would wean meryl first and then wean levophed afterwards assuming MAP remains at goal as above
- If hypotension worsens then would administer albumin 25g 25%
- Continue broad spectrum ABx (meropenem) as per ID until additional family (Daughter) arrives at which point we will transition to hospice
- Follow up repeat blood Cx from 09/2023, and follow-up BCx sensitivities from 09/21/2023
- Goal HR<110
- Replete K>4, Mg>2
- Transfuse if needed to keep Hb>7, plt>20k
- maintain SpO2 >90-94% with supplemental O2 and wean as tolerated
- Maintain euglycemia with goal BG 140�180
- Trend serum Na with goal 135-145
- DVT prophylaxis: SCDs for now given anemia/TCP --> if Hb and plt count remains stable with Hb>8 and plt>50k for >24 hrs then would consider starting chemical ppx. This is a moot point, however, as patient is likely being transitioned to hospice
tomorrow when additional family arrives (daughter from [place])
Critical care statement: A total of 40 minutes of critical care time was provided for this patient today. This includes management of unstable vital signs, evaluation of the patient at bedside, reviewing the patient's pertinent medical records
including radiographs, microbiology, laboratory evaluations, and discussion with primary team, consultants, pharmacy, nutrition, physical therapy, case management, charge nurse, critical care nursing, and respiratory therapy.
Code status: DNR/DNI
Data:
CXR 09-22-2023: Right PICC line is present with its tip in good position within the inferior aspect of the SVC.
CT RLE Extremity 09-22-2023: Extensive subcutaneous stranding/edema within the right leg and skin thickening within the medial aspect of the thigh suspicious for cellulitis. No organized fluid collection or abscess identified.
--- NOTE | 2023-09-24 08:54 | W.PN.HOSP.TC ---
Today's Communication/Plan
-
maintain current plan of care
Withdrawal of care Monday
place [facility] for retention
Assessment / Plan
Assessment / Plan
Assessment:
Sepsis, evolved 09/21/23; now with septic shock
ESBL bacteremia
- from RLE cellulitis, severe
- CT RLE without abscess; GS Signed off
- continue Merrem, day 3
- ID following
- fever control with Tylenol and cooling blankets prn
- on Levophed and Ronnie-synephrine - noted increase in pressor requirements overnight
Rapid AFib
- on Amio drip - maintain for now
- now in NSR
- Anticoagulant contraindicated due to thrombocytopenia
- CBC group had followed
Hyponatremia, likely ADH drive from hypotensive state
Acute hypoxic respiratory insufficiency
Pneumonia on CXR
- continue Merrem, day 3
Acute high output CHF from acute anemia, on chronic HFrEF
Acute Hypoxic Respiratory Insufficiency secondary to above
- Echo in 09/15: EF was 44%
- s/p IV Lasix post transfusions
- at discharge Lasix 20mg as recently prescribed if BP can handle
Acute Myeloid Leukemia with bicytopenia (anemia, thrombocytopenia)
- s/p 3 units PRBCs; repeat Hb now 8.5
- Patient receiving Vidaza weekly - Last dose Sep 15
- hold cephalexin prophylaxis with above sepsis process
- Oncology OP f/u
- Palliative care OP f/u
Heme positive GI bleed, dark stools
Moderate Protein Calorie Malnutrition
- Dietary following
Healing stage 2 spine and sacral pressure injury, POA
Stage 1 b/l heels pressure injury, POA
- wound care
DVT proph: Anticoagulant contraindicated due to thrombocytopenia. SCDs ordered.
Code Status: DNR
GOC: d/w Fariba 09/23 in AM. discussed worsening shock, leukocytosis, now GI bleed. Poor prognosis discussed. Family opts for withdrawal of care in 24 hours when his daughter arrives at 3 pm (travelling from the [place]).
Anticipated Discharge: 24 - 48 hours
Subjective/Interval History
-
Date of Service: September 24, 2023
overnight with worsening parameters including increasing pressor requirements, evidence of GI bleed, more somnolent
kasey and open discussion with Fariba, and his poor prognosis was discussed, she opts for withdrawal of care when her daughter arrives from [place] tomorrow.
Objective Data
-
Labs:
Laboratory Results
09/24/23
03:42
WBC 77.2 H*
Hgb 7.4 L
Hct 22.4 L
Plt Count 52 L D
Sodium 131 L
Potassium 3.6
Chloride 102
Carbon Dioxide 26
BUN 48 H
Creatinine 1.1
Glucose 157 H
Calcium 7.6 L
Vital Signs:
Vital Signs
Temp Pulse Resp BP Pulse Ox
99.2 F 67 14 105/56 96
09/24/23 07:23 09/24/23 07:10 09/24/23 07:10 09/24/23 07:10 09/24/23 07:10
I&O
09/23/23 09/24/23 09/25/23
06:59 06:59 06:59
Intake Total 1296.8 / 1379.5 1705.8 / 1785.5 79.7 / 79.7
Output Total 600 / 600 600 / 600
Balance 696.8 / 779.5 1105.8 / 1185.5 79.7 / 79.7
Physical Exam
-
General: Respiratory Distress and Appears Chronically Ill
HEENT: Normocephalic and Atraumatic
Respiratory: Decreased Breath Sounds
Cardiac: Regular Rhythm and S1/S2
GI: Soft
Genito-urinary: No Costovertebral Tender
Psych: Calm
Data Reviewed
-
Total Time Spent with Patient (in minutes): 45
Labs: Labs Reviewed by me
--- NOTE | 2023-09-24 09:25 | PTCARENOTE ---
GOC discussed by Dr. Finney with pt.'s spouse. Plan to continue on blood pressure/medication support until further family arrives tomorrow, then transition to comfort care. Plan of care in progress. Safe environment maintained.
--- NOTE | 2023-09-24 11:07 | W.PN.ONC2 ---
Today's Communication / Plan
-
Hospice planned once daughter arrives tomorrow from [place].
Will consult Case Management if not already done.
Continue active care for now.
Impression
Impression
Hx AML, symptomatic anemia
Febrile transfusion reaction (09/21/23) w/ Tmax 104.9
Acute hypoxic respiratory distress
Concern for RLE cellulitis
Hx PAF
Plan
Plan
Marked increase in WBC noted consistent with progressive AML.
D/w pt and with by phone.
They are waiting for daughter to arrive tomorrow from [place]. Pt will then be placed on hospice.
Subjective/Objective
Chief Complaint
Acute leukemia
Subjective
Pain not well controlled currently. States it takes a while for pain medicine to work.
Vital Signs:
Vital Signs
Temp Pulse Resp BP Pulse Ox
99.2 F 77 20 95/54 98
09/24/23 07:23 09/24/23 09:00 09/24/23 09:00 09/24/23 08:45 09/24/23 09:07
Lab Results:
Laboratory Data
WBC 77.2 10^3/uL (4.8-10.8) H* 09/24/23 03:42
Hgb 7.4 g/dL (13.0-18.0) L 09/24/23 03:42
Plt Count 52 10^3/uL (130-400) L D 09/24/23 03:42
PT 19.9 Sec (11.4-14.6) H 09/21/23 16:29
INR 1.68 09/21/23 16:29
APTT 74.7 Sec (23.4-35.0) H 09/23/23 03:54
eGFR > 60.00 09/24/23 03:42
Physical Exam
Awake, alert, chronically ill-appearing.
--- NOTE | 2023-09-24 12:26 | PTCARENOTE ---
Pt. voided 125mL of jorge urine. Bladder scanned for 474mL PVR. Dr. Finney made aware and vanegas placed for acute retention. Vanegas drained 500mL of jorge urine. Pt. had cont BM on bedpan, remains heme (+). Pt cleaned and repositioned.
remains @ bedside. Emotional support given, safe environment maintained.
[2023-09-24] MEDS: MORPHINE SULFATE 1 MG IV ×2 (13:10→17:50)
[2023-09-24] MEDS: LEVOPHED 250 IV (15:58)
--- NOTE | 2023-09-24 20:00 | PTCARENOTE ---
Rec'd pt resting in bed, family at bedside, denies pain at present, drowsy, SR, amiodarone gtt at 0.5mg, to keep map > 65 w/ levo & Ronnie- see flow sheet for titrations, distal pulses via doppler, + LE edema, skin warm/dry, O2 4 liters nc, lungs decr,
scat fine crackles, sat 97, hypo bowel sounds, no bm, abd soft, no n/v, vanegas draining jorge urine
[2023-09-24] MEDS: NEURONTIN 600 MG PO (21:51)
--- NOTE | 2023-09-24 22:07 | PTCARENOTE ---
per - Fariba-pt will be going on hospice tomorrow- wishes that pt is not turned or washed during this shift since pt gets very uncom
--- NOTE | 2023-09-24 23:54 | PTCARENOTE ---
at bedside, pt sleeping
[2023-09-25] VITALS (35 sets, daily range): BP systolic 69–109; BP diastolic 32–71
[2023-09-25] MEDS: CORDARONE 518 MG IV (00:32)
[2023-09-25] MEDS: MERREM 500 MG IV (01:56)
[2023-09-25] MEDS: STERILE WATER FOR INJECTION 10 ML IV (01:56)
[2023-09-25] MEDS: NEO-SYNEPHRINE 250 IV ×3 (03:26→12:56)
--- NOTE | 2023-09-25 03:51 | PTCARENOTE ---
sleeping, per - not to turn or disturb
[2023-09-25] MEDS: MORPHINE SULFATE 1 MG IV ×2 (05:22→09:52)
--- NOTE | 2023-09-25 05:24 | PTCARENOTE ---
morphine 1mg iv given for neck pain
--- NOTE | 2023-09-25 06:33 | W.PN.HOSP.TC ---
Today's Communication/Plan
-
.
Assessment / Plan
Assessment / Plan
Physical Exam
-
General: Ill looking, reports being comfortable at present
HEENT: N dry mucous membrane
Respiratory: Limited with no audible wheezes
Cardiac: S1-S2, sinus rhythm on telemetry
GI: Soft and Nontender
Genito-urinary: No Costovertebral Tender
Musculoskeletal: No localized joint swelling or tenderness
Neuro: AO to self and surroundings,, followed commands.
Psych: Calm, no agitation.
Assessment:
Sepsis, evolved 09/21/23; septic shock
ESBL bacteremia
- from RLE cellulitis, severe
- CT RLE without abscess; GS Signed off
- continue Merrem, day 4
- fever control with Tylenol and cooling blankets prn
- on Levophed and Ronnei-synephrine
Appreciate ICU doctor help
# Paroxysmal AFib
- on Amio drip - maintain for now
- now in NSR
- Anticoagulant contraindicated due to thrombocytopenia
Appreciate cardiology input
#Hyponatremia, likely ADH drive from hypotensive state
Acute hypoxic respiratory insufficiency
Pneumonia on CXR
- continue Merrem, day 3
Acute high output CHF from acute anemia, on chronic HFrEF
Acute Hypoxic Respiratory Insufficiency secondary to above
- Echo in 09/15: EF was 44%
- s/p IV Lasix post transfusions
- at discharge Lasix 20mg as recently prescribed if BP can handle
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
- s/p 3 units PRBCs; repeat Hb now 8.5
- Patient receiving Vidaza weekly - Last dose Sep 15
- hold cephalexin prophylaxis with above sepsis process
- Oncology OP f/u
- Palliative care OP f/u
# Hyponatremia
# Mild renal insufficiency. Creatinine at baseline
# Acute blood loss anemia, with anemia secondary to leukemia possible element of hemorrhagic shock, heme positive GI bleed, dark stools
Moderate Protein Calorie Malnutrition
- Dietary following
#Healing stage 2 spine and sacral pressure injury, POA
Stage 1 b/l heels pressure injury, POA
- wound care
DVT proph: Anticoagulant contraindicated due to thrombocytopenia. SCDs ordered.
Code Status: DNR
Hospitalist Discussed with Fariba 09/23 in AM. discussed worsening shock, leukocytosis, complicated by hypotension and GI bleed. Poor prognosis discussed. Family decided to withdraw care in 24 hours when his daughter arrives at 3 pm
(travelling from the ).
Total time spent to see the patient, examine the patient on the floor, review data and lab results, discuss treatment plan with patient, nursing staff around 55 minutes
Anticipated Discharge: 24 - 48 hours
Subjective/Interval History
-
Date of Service: September 25, 2023
He is comfortable
at bed side and spent night with him
Night team, still on 2 pressure support medications
Objective Data
-
Vital Signs:
Vital Signs
Temp Pulse Resp BP Pulse Ox
98.7 F 66 20 101/57 95
09/25/23 03:52 09/25/23 05:30 09/25/23 05:30 09/25/23 05:30 09/25/23 05:30
I&O
09/23/23 09/24/23 09/25/23
06:59 06:59 06:59
Intake Total 1296.8 / 1379.5 1705.8 / 1785.5 1962.8 / 1962.8
Output Total 600 / 600 600 / 600 1190 / 1190
Balance 696.8 / 779.5 1105.8 / 1185.5 772.8 / 772.8
--- NOTE | 2023-09-25 07:04 | W.PN.INTV ---
Today's Communication / Plan
Recommendations
Maintained on 2 pressors, wean to 1 med and add vaso if needed
Continue abx empirically
Pain control
Daughter to arrive for further C discussions
Overall prognosis appears poor
Assessment
-
77-year-old male with a PMHx of AML on chemo, anemia, paroxysmal A-fib, and former tobacco use disorder presents with hypoxia. Patient initially hypotensive in the ER and there was concern for volume overload with acute on chronic anemia. Patient
was only given Lasix x 1 due to hypotension, and he required multiple units PRBC transfusions. Patient developed a left lower lobe pneumonia, and was also being treated for a RLE cellulitis. Blood cultures started to grow ESBL�E. coli and
hypotension worsened requiring vasopressors. Patient with refractory septic shock requiring pressors and admitted to ICU with back office medical assistant services consulted for additional management/recommendations.
Impression:
#Shock - due to sepsis with ESBL-E. coli bacteremia, pneumonia and RLE cellulitis
#CAP
#Acute respiratory failure with hypoxemia -multifactorial due to pneumonia, volume overload and shock with acute organ dysfunction
#Non-purulent RLE cellulitis
#Chronic anemia/thrombocytopenia (baseline plt is 200-330, baseline Hb 7-9)
#Leukocytosis - likely due to acute infection in the setting of known AML with progression
#Hyponatremia
#Hyperglycemia
#Hypoalbuminemia
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
AML
Paroxysmal A-fib
Former tobacco use disorder
History of COVID-19 x2 (08/2021; 02/2023)
Impaired vision
Anemia
Plan:
No current signs of metabolic encephalopathy or MS changes/following commands
Baseline MS reported as AAOx 3
Mild-mod pain noted
Pain/sedation: morphine PRN
RASS goals: 0
Profound refractory septic shock, requiring ICU admission/care and pressors
Currently hemodynamically unstable, while on pressors. Unable to wean
Requiring pressors: meryl @160, levo @4--reviewed with team to wean to 1 pressor
Can add vasopressin if needed
Cardiac history reviewed--PAF
Prior ECHO reviewed indicating normal EF, mild VHD, mild-mod PH
Possible extracardiac mass/CT recommended per ECHO report
Oxygen needs: 4L NC
Prior history of lung disease: former smoker, prior COPD dx is noted but no PFTs for confirmation
Supplemental O2 as indicated to maintain sats > 89%
CXR/CT reviewed indicating chronic changes, small L pleural effusion too small to tap
Repeat imaging as needed
Advance diet as tolerated
Security Compliance Engineer recommendations
Aspiration precautions, HOB > 30 degrees
Speech therapy eval can be considered if at elevated risk
GI prophylaxis if indicated for mechanical ventilation >48 hours, prior history of GERD, stress ulcer formation in the critically ill
Creat at baseline, no history of renal disease
Void trials
Follow urine output, critical I/Os
Replete electrolytes as needed
E. Coli bacteremia, urosepsis, LE cellulitis
Started on empiric antibiotics, leukocytosis worsening
Cultures reviewed:
Blood + Ecoli
Flu neg
MRSA neg 04/03/23
Follow fever trend, WBC count
Lactate not elevated on admission, 1.0
Hx AML, symptomatic anemia
Febrile transfusion reaction (09/21/23) w/ Tmax 104.9
Onc following
CBC reviewed, worsening leukocytosis
DVT prophylaxis as assessed based on risk, including mechanical SCDs
No prior h/o diabetes or thyroid disease
Monitor accuchecks PRN/SS coverage if needed
Code status: DNR/DNI
Overall prognosis is poor
Per care team notes, awaiting daughter to arrive from for comfort care decision-making
Diagnostic Data
CXR 09-22-2023: Diffusely increased interstitial markings which appear improved from previous radiograph, suggestive of improvement in interstitial edema pattern. Improvement in bilateral interstitial pneumonia is also possible. Small left pleural
effusion is possible.
Chest US 09/22/23- Small LEFT pleural effusion, likely too small for safe thoracentesis.
CT RLE Extremity 09-22-2023: Extensive subcutaneous stranding/edema within the right leg and skin thickening within the medial aspect of the thigh suspicious for cellulitis. No organized fluid collection or abscess identified.
ECHO 09/22/23- �Normal left ventricular size, wall thickness and systolic function. No regional wall motion abnormalities are seen.�LV ejection fraction is 60% by volumetric assessment.�Normal diastolic function.�Dilated RV with normal systolic
function.�Mild mitral regurgitation.�Mild tricuspid regurgitation.�Estimated pulmonary artery pressure of 41 mmHg assuming a right atrial pressure�of 3 mmHg.�Extra cardiac structure seen best on views 64 and 66, differential includes�tumor versus
collapsed lung, recommend dedicated chest CT for better�visualization and clarification.�Compared to prior on August 29, 2022, ejection fraction has improved and is�now normal.��
-----
Critical Care time 40 mins -- The patient is admitted for acute critical illness for the treatment of vital organ failure and/or prevention of further life-threatening conditions. Total care includes time spent in review of history, physical exam,
medications, hemodynamic/ventilator parameters, laboratory data, imaging and discussion with house staff, pharmacy, respiratory therapy, parts counterperson, and nursing.
Subjective Dataa
Subjective Data
Date of Service:
Date of Service: September 25, 2023
Chief Complaint: Nurses' Association Executive Director Follow Up
Subjective:
remains on 2 pressors, still hypotensive
does have pain throughout, appetite poor
Objective Data
Data Reviewed
Vital Signs / I&O / Oxygen:
Vital Signs
Temp Pulse Resp BP Pulse Ox
98.7 F 67 20 101/62 95
09/25/23 03:52 09/25/23 06:30 09/25/23 06:30 09/25/23 06:30 09/25/23 06:30
Intake and Output
09/24/23 09/25/23 09/26/23
06:59 06:59 06:59
Intake Total 1705.8 / 1785.5 1962.8 / 1962.8
Output Total 600 / 600 1190 / 1190
Balance 1105.8 / 1185.5 772.8 / 772.8
SaO2 95
Nasal Cannula flow liters per 4
minute
Physical Exam
General: Comfortable, Poor Appetite and Other (chronically ill appearing)
HEENT: Normocephalic, Anicteric and Moist Mucous Membranes
Cardiovascular: S1-S2, Regular Rhythm and Peripheral Edema
Respiratory: Clear and Non-Labored Respirations
GI: Soft, Non Distended and Non Tender
Neurology: Awake, Alert, Oriented, AO x 3 and No Motor Deficits
Skin: Warm, Dry and Good Color
Labs/Micro/Reports
Lab Data
09/24/23 03:42
09/24/23 03:42
Microbiology
09/23/23 14:30 Blood/Venous Blood Culture - Preliminary
No Growth in 24 hours- Final report to follow
09/23/23 14:30 Blood/Venous Blood Culture - Preliminary
No Growth in 24 hours- Final report to follow
09/21/23 16:15 Blood/Venous Blood Culture - Final
Escherichia coli - ESBL
09/21/23 16:15 Blood/Venous Gram Stain - Final
[2023-09-25] MEDS: MERREM IV ×2 (07:48→12:56)
[2023-09-25] MEDS: STERILE WATER FOR INJECTION IV ×2 (07:49→12:56)
[2023-09-25] MEDS: NEURONTIN PO ×2 (07:49→19:07)
[2023-09-25] MEDS: NSS (PRESERVATIVE FREE) IV (07:49)
[2023-09-25] MEDS: PROTONIX IV IV (07:49)
--- NOTE | 2023-09-25 08:00 | PTCARENOTE ---
Received pt @ change of shift. Assessment per flow sheet. Levo/meryl/amio gtts infusing-see work list. @ bedside. Plan for comfort care today after more family arrives. Emotional support given. Instructed pt. and on how to report care
concerns. Call paez in reach.
[2023-09-25] MEDS: LEVOPHED 250 IV (08:07)
--- NOTE | 2023-09-25 12:46 | PTCARENOTE ---
Ronnie gtt increased and levo gtt off- see flow sheet. Pt.'s and son remain @ bedside, awaiting further family. Medicated for moderate back pain prn-see SEP. Pt. reports comfort in current position and refused position change. Call paez
remains in reach.
[2023-09-25] MEDS: MORPHINE SULFATE 2 MG IV ×6 (15:31→22:36)
--- NOTE | 2023-09-25 15:32 | W.PN.UPDATE ---
Update Note
Progress Note Update
Update:
Spoke with family at bedside, confirmed they are ready for comfort measures.
We will initiate orders.
Reviewed with care team.
[2023-09-25] MEDS: ATIVAN 1 MG IV ×2 (17:06→22:45)
[2023-09-25] MEDS: NSS (PRESERVATIVE FREE) 0.5 ML IV (17:06)
--- NOTE | 2023-09-25 18:03 | PTCARENOTE ---
Pt. transitioned to comfort care. PRN IV morphine and Ativan admin- see SEP. All gtts off-see flow sheet. Family @ bedside. Emotional support given.
--- NOTE | 2023-09-25 19:30 | PTCARENOTE ---
Rec'd pt on comfort care, family at bedside, family wishes that no care or turning be done for pt, morphine 2mg iv given for end of life assessment, RA, RR 16, NPO,romina patent,support given to family
--- NOTE | 2023-09-25 22:29 | PTCARENOTE ---
pt unresp, appears comg, family at bedside
--- NOTE | 2023-09-25 22:38 | PTCARENOTE ---
morpne 2mg iv given for pain
--- NOTE | 2023-09-25 22:46 | PTCARENOTE ---
ativan 1mg iv given for restlessness
[2023-09-25] MEDS: MORPHINE 100 IV (23:27)
--- NOTE | 2023-09-25 23:30 | PTCARENOTE ---
morphine gtt started on step 2 at 2mg/hr
[2023-09-26] MEDS: ROBINUL 0.200000000000000011 MG IV (01:45)
[2023-09-26 01:50] VITALS: BP 78/40
[2023-09-26] MEDS: MORPHINE SULFATE 2 MG IV ×6 (03:43→15:33)
[2023-09-26 04:33] VITALS: BP 73/37
--- NOTE | 2023-09-26 06:14 | W.PN.HOSP.TC ---
Today's Communication/Plan
-
.
Assessment / Plan
Assessment / Plan
Physical Exam
-
General: Ill looking, sedated with morphine
HEENT: dry mucous membrane
Respiratory: Limited with no audible wheezes
Cardiac: S1-S2,
GI: Soft and Nontender
Genito-urinary: No Costovertebral Tender.
Musculoskeletal: No localized joint swelling or tenderness
Neuro: sedated and unable to follow commands
Psych: Calm, no agitation.
Assessment:
Sepsis, septic shock
ESBL bacteremia
# Paroxysmal AFib
#Hyponatremia, l
#Acute hypoxic respiratory insufficiency
# Acute on chronic HFrEF
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
- s/p 3 units PRBCs
# Mild renal insufficiency. Creatinine at baseline
# Acute blood loss anemia, with anemia secondary to leukemia possible element of hemorrhagic shock, heme positive GI bleed, dark stools
#Moderate Protein Calorie Malnutrition
#Healing stage 2 spine and sacral pressure injury, POA
Stage 1 b/l heels pressure injury, POA
DVT proph: Anticoagulant contraindicated due to thrombocytopenia. SCDs ordered.
Code Status: DNR
continue with comfort care measure
Started on IV morphine gtt to control his distress. Family was concerned about him waking up and getting restless.
c/w IV Ativan PRN
Total time spent to see the patient, examine the patient on the floor, review data and lab results, discuss treatment plan with family at bed side, nursing staff around 55 minutes
Anticipated Discharge: 24 - 48 hours
Subjective/Interval History
-
Date of Service: September 26, 2023
Sedated with IV morphine gtt
Objective Data
-
Vital Signs:
Vital Signs
Temp Pulse Resp BP Pulse Ox
98.7 F 77 16 73/37 99
09/25/23 03:52 09/26/23 04:33 09/26/23 04:33 09/26/23 04:33 09/25/23 14:30
I&O
09/24/23 09/25/23 09/26/23
06:59 06:59 06:59
Intake Total 1705.8 / 1785.5 1962.8 / 2042.5 785.7 / 785.7
Output Total 600 / 600 1190 / 1190 700 / 700
Balance 1105.8 / 1185.5 772.8 / 852.5 85.7 / 85.7
--- NOTE | 2023-09-26 07:31 | PTOTSP ---
Reviewed chart and noted pt now on comfort measures. Will dc PT services.
--- NOTE | 2023-09-26 10:18 | PTCARENOTE ---
RN received patient from warehouse shift supervisor RN, Family in the room. Plan of care and goals expressed to this RN by son and outside of patient room. Staff are not allowed to move patient or reposition pt. as family believes it will cause the patient
pain. I explained that it is good to reposition patient to prevent further skin breakdown ( patient has an existing wound on buttocks) family expressed this is against there wishes and would like him to be managed with only PRN medications as well
as morphine drip. Patient laying comfortably in the bed.
[2023-09-26] MEDS: ATIVAN 1 MG IV ×3 (11:25→14:36)
--- NOTE | 2023-09-26 13:31 | CM ---
CM following re: discharge planning.
Reviewed pt's chart.
Per MD pt is comfort measure.
CM is available for emotional support.
--- NOTE | 2023-09-26 18:41 | W.PN.DEATH ---
Pronouncement of
-
Called to see patient to pronounce.
No spontaneous heart tones or respirations noted.
Patient not responsive to verbal stimuli.
Patient is pronounced .
Time of : 18:32
Date of : 09/26/23
Cause of : Multiple system failure due to septic shock
Family Notified: Yes
--- NOTE | 2023-09-27 12:50 | W.DCSUMMARY ---
Discharge Summary
Discharge Data
Date of Admission: 09/19/23
Date of Discharge: 09/26/23
-
Pending Results: No
Hospital Course
77 years old male presented to the emergency room with hypoxia, weakness and failure to thrive. Patient was under palliative care treatment at home. Patient was diagnosed with severe sepsis and septic shock. He had bacteremia and was found to
have right lower extremity cellulitis/pneumonia. Patient received intravenous antibiotics. Patient had history of paroxysmal atrial fibrillation and was started on amiodarone drip to control his heart rhythm. Patient was seen by
business technology architect/sports marketing specialist and infectious diseases consultants. He was diagnosed with acute on chronic heart failure with reduced ejection fraction. He had multiple organ failure. He had hypoxia and received oxygen treatment. Patient had history
of acute progressive myeloid leukemia with bicytopenia. Patient did not show good clinical improvement despite aggressive medical care. Patient and family sought comfort care measures. Goal of care discussion was made. Patient was transition to
comfort care level and peacefully on 09/26/2023.
Discharge Plan
-
Patient Disposition:
Date/Time
Date/Time: 09/26/23 18:32
Discharge Date and Time
Discharge Date/Time: 09/26/23 21:21
== END 2023-09-26 21:21 | disposition expired | DRG 834 ==
LOC: ICU 16:54
PROVIDERS: Internal Medicine; Nurse Practitioner Primary Care; Physician Assistant; Physician Assistant Medical; Registered Nurse; ADMITTING PHYSICIAN Internal Medicine; ATTENDING PHYSICIAN Internal Medicine; CONSULT PHYSICIAN Internal Medicine Cardiovascular Disease; CONSULT PHYSICIAN Surgery; EMERGENCY PHYSICIAN Student in an Organized Health Care Education/Training Program; OTHER PHYSICIAN Internal Medicine Critical Care Medicine; OTHER PHYSICIAN Internal Medicine Hematology & Oncology; OTHER PHYSICIAN Student in an Organized Health Care Education/Training Program
PROC: 30233N1 Transfusion of Nonautologous Red Blood Cells into Peripheral Vein, Percutaneous Approach (ICD-10-PCS; 2023-09-19)
DX: C92.00 Acute myeloblastic leukemia, not having achieved remission (principal); A41.51 Sepsis due to Escherichia coli [E. coli]; I50.23 Acute on chronic systolic (congestive) heart failure; J18.9 Pneumonia, unspecified organism; R65.21 Severe sepsis with septic shock; J90 Pleural effusion, not elsewhere classified; Z94.81 Bone marrow transplant status; Z68.1 Body mass index [BMI] 19.9 or less, adult; L03.115 Cellulitis of right lower limb; E87.1 Hypo-osmolality and hyponatremia; E44.0 Moderate protein-calorie malnutrition; Z51.5 Encounter for palliative care; I50.83 High output heart failure; I48.0 Paroxysmal atrial fibrillation; I11.0 Hypertensive heart disease with heart failure; L89.152 Pressure ulcer of sacral region, stage 2; L89.621 Pressure ulcer of left heel, stage 1; L89.611 Pressure ulcer of right heel, stage 1; R06.89 Other abnormalities of breathing; R62.7 Adult failure to thrive; H54.7 Unspecified visual loss; R09.02 Hypoxemia; T80.89XA Other complications following infusion, transfusion and therapeutic injection, initial encounter; D69.6 Thrombocytopenia, unspecified; D50.9 Iron deficiency anemia, unspecified; R73.9 Hyperglycemia, unspecified; E88.09 Other disorders of plasma-protein metabolism, not elsewhere classified; K21.9 Gastro-esophageal reflux disease without esophagitis; Z11.52 Encounter for screening for COVID-19; Z87.891 Personal history of nicotine dependence; Z87.01 Personal history of pneumonia (recurrent); Z66 Do not resuscitate; Z79.2 Long term (current) use of antibiotics; Z86.16 Personal history of COVID-19
CPT/HCPCS: 71045; 71046; 73701; 76604; 80048; 80053; 81003; 82247; 82248; 82962; 83605; 83735; 83880; 84484; 85025; 85027; 85610; 85730; 86078; 86850; 86900; 86901; 86920; 87040; 87149; 87186; 87205; 87502; 87811; 92610; 93005; 93306; 93970; 97163; 99285; P9016; Q9967